=== PATIENT | male | born 1955 | race Caucasian/White ===

== ENCOUNTER 2018-02-01 18:48 | Inpatient (IN) | payer MEDICARE ==
[~2018-02-01] VITALS: Ht 177.8 cm; Wt 92.2 kg
[2018-02-01 19:14] VITALS: BP 187/84; PULSE 85; RESP 20; TEMP 98.1; O2SAT 99
--- NOTE | 2018-02-01 20:09 | PD ---
HPI Chief Complaint: Hip Injury Time Seen by Provider: 20:08 Travel History International Travel<30 days: No Contact w/Intl Traveler<30days: No Traveled to known affect area: No History of Present Illness HPI 63-year-old male came to the emergency room brought by EMS after a fall from his seated walker while he was fishing. Patient landed on the left side and was unable to get up since then. He complains of left hip pain. Patient can ambulate with the help of the walker. 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 Patient is diabetic. He also has history of end-stage renal disease and hemodialysis dependent. His last dialysis was yesterday. Pain is worse upon movement. Patient received morphine on route by EMS. [facility] Past Medical History Narrative Medical List of his past medical, surgical, social and family history is reviewed from the nursing note. COPD: Yes Diabetes: No Patient Takes Glucophage: No Dialysis: Yes (m/w/f) Hypertension: Yes Respiratory: Yes (COPD) Tetanus Vaccination: < 5 Years Influenza Vaccination: Yes Past Surgical History Cardiac Surgery: Yes (open heart) Social History Alcohol Use: Yes (rare) Tobacco Use: No Substance Use: No Allergies-Medications (Allergen,Severity, Reaction): Coded Allergies: codeine (Verified Allergy, Intermediate, 02/02/18) Comments List of his allergies reviewed from the nursing note Reported Meds & Prescriptions Reported Meds & Active Scripts Active Narrative Medication List of his home medications reviewed from the nursing note. Review of Systems Except as stated in HPI: all other systems reviewed are Neg Musculoskeletal: Positive: Pain Physical Exam Narrative GENERAL: Awake, alert, moderate distress SKIN: Focused skin assessment warm/dry. HEAD: Atraumatic. Normocephalic. EYES: Pupils equal and round. No scleral icterus. No injection or drainage. ENT: No nasal bleeding or discharge. Mucous membranes pink and moist. NECK: Trachea midline. No JVD. CARDIOVASCULAR: Regular rate and rhythm. No murmur appreciated. RESPIRATORY: No accessory muscle use. Clear to auscultation. Breath sounds equal bilaterally. GASTROINTESTINAL: Abdomen soft, non-tender, nondistended. Hepatic and splenic margins not palpable. MUSCULOSKELETAL: No obvious deformities. No clubbing. No cyanosis. No edema. Left BKA. Decreased range of motion at the left hip joint because of the pain NEUROLOGICAL: Awake and alert. No obvious cranial nerve deficits. Motor grossly within normal limits. Normal speech. PSYCHIATRIC: Appropriate mood and affect; insight and judgment normal. Data Data Last Documented VS Vital Signs Date Time Temp Pulse Resp B/P (MAP) Pulse Ox O2 Delivery O2 Flow Rate FiO2 02/01/18 20:25 69 20 182/106 (131) 95 Room Air 02/01/18 19:14 98.1 Orders Orders Femur (Ap & Lat/2vws) (02/01/18 ) Pelvis, Ap Only (Routine) (02/01/18 ) Morphine Inj (Morphine Inj) (02/01/18 20:15) Electrocardiogram (02/01/18 19:06) Chest, Single Ap (02/01/18 ) Complete Blood Count With Diff (02/01/18 21:14) Basic Metabolic Panel (Bmp) (02/01/18 21:14) Prothrombin Time / Inr (Pt) (02/01/18 21:14) Admit Order (Ed Use Only) (02/01/18 21:14) [facility] Medical Decision Making Medical Screen Exam Complete: Yes Emergency Medical Condition: Yes Medical Record Reviewed: Yes Interpretation(s) Twelve-lead EKG was reviewed by me. Normal sinus rhythm, left axis deviation, anterior T-wave inversions. Heart rate of 69 bpm Differential Diagnosis Hip fracture, femur fracture, hip strain Narrative Course 9:25 PM x-ray of the femur and pelvis suggestive of left intertrochanter fracture. Blood test have been ordered. Patient will require admission. I discussed the case with the hospitalist was accepted the patient. 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 9:50 PM patient's biofuels plant operations engineer is Dr. Casey Ferro. This has been conveyed to the hospitalist. CBC shows the patient is anemic but hemoglobin is 8.6 and hence does not require blood transfusion at this point. Procedures EKG Prior to Arrival: No Diagnosis Primary Impression: Hip fracture Qualified Codes: S72.002A - Fracture of unspecified part of neck of left femur , initial encounter for closed fracture Additional Impressions: End stage renal disease Dependent on hemodialysis Admitting Information Admitting Physician Requests: Little Mathew MD Feb 01, 2018 20:09
[2018-02-01] MEDS ORDERED: MORPHINE SULFATE 4 MG/ML INJ IV PUSH ONE ×2 (20:15→23:00)
[2018-02-01 20:25] VITALS: BP 182/106; PULSE 69; RESP 20; O2SAT 95
--- NOTE | 2018-02-01 21:40 | RADRPT ---
EXAM DATE/TIME: 02/01/2018 20:50 [facility] COMPARISON: FEMUR LEFT (AP & LAT/2VWS), February 01, 2018, 20:52. INDICATIONS : Left hip pain after falling tonight. MEDICAL HISTORY : Hypertension. Diabetic. SURGICAL HISTORY : Below the knee left amputation. ENCOUNTER: Initial ACUITY: 1 day PAIN SCORE: 8/10 LOCATION: Left hip. FINDINGS: There is a mid cervical left femoral neck fracture with minimal displacement and likely slight angula tion and impaction. The adjacent pelvis appears grossly intact. Contralateral right hip is intact. Th ere are dense atherosclerotic vascular calcifications present. Degenerative changes noted in the visu alized lumbar spine. CONCLUSION: Left femoral neck fracture Tavares Baker MD on February 01, 2018 at 21:37 Board Certified Radiologist. This report was verified electronically.
--- NOTE | 2018-02-01 21:41 | RADRPT ---
EXAM DATE/TIME: 02/01/2018 20:52 [facility] COMPARISON: No previous studies available for comparison. INDICATIONS : Left hip pain after falling today. MEDICAL HISTORY : Hypertension. Diabetic. SURGICAL HISTORY : Below the knee left amputation. ENCOUNTER: Initial ACUITY: 1 day PAIN SCORE: 6/10 LOCATION: Left hip. FINDINGS: The left femoral neck is fractured. The remainder of the femur is intact. There mild degenerative yong nges at the knee. Dense atherosclerotic vascular calcification is present in the soft tissues. CONCLUSION: Left femoral neck fracture Tavares Baker MD on February 01, 2018 at 21:38 Board Certified Radiologist. This report was verified electronically.
[2018-02-01 21:43] LABS: AUTOMATED NEUTROPHIL # 5.7 TH/MM3 (1.8-7.7); BASOPHIL # 0.1 TH/MM3 (0-0.2); BASOPHIL % 1.1 % (0.0-2.0); EOSINOPHIL # 0.1 TH/MM3 (0-0.4); EOSINOPHIL % 1.6 % (0.0-4.0); HEMATOCRIT 25.9 % (39.0-51.0); HEMOGLOBIN 8.6 GM/DL (13.0-17.0); LYMPH % 5.1 % (9.0-44.0); LYMPHOCYTE # 0.3 TH/MM3 (1.0-4.8); MEAN CELL VOLUME 91.8 FL (80.0-100.0); MEAN CORPUSCULAR HEMOGLOBIN 30.6 PG (27.0-34.0); MEAN CORPUSCULAR HGB CONC 33.3 % (32.0-36.0); MEAN PLATELET VOLUME 8.8 FL (7.0-11.0); MONO % 5.9 % (0.0-8.0); MONOCYTE # 0.4 TH/MM3 (0-0.9); NEUT % 86.3 % (16.0-70.0); PLATELET COUNT 217 TH/MM3 (150-450); RED BLOOD COUNT 2.82 MIL/MM3 (4.50-5.90); RED CELL DISTRIBUTION WIDTH 16.2 % (11.6-17.2); WHITE BLOOD COUNT 6.6 TH/MM3 (4.0-11.0)
[2018-02-01 21:47] VITALS: BP 176/79; PULSE 70; RESP 20; O2SAT 95
--- NOTE | 2018-02-01 21:49 | RADRPT ---
EXAM DATE/TIME: 02/01/2018 21:23 [facility] COMPARISON: No previous studies available for comparison. INDICATIONS : PT fell while fishing. Pt has cough. MEDICAL HISTORY : None. SURGICAL HISTORY : None. ENCOUNTER: Initial ACUITY: 1 day PAIN SCORE: 0/10 LOCATION: FINDINGS: Examination does mild infiltrate in the right lung base. Left lung is grossly clear. There may be sma ll right effusion. No evidence of pneumothorax. Heart size is borderline. Mediastinal contours are gr ossly satisfactory. There has been previous sternotomy. CONCLUSION: Mild right base infiltrate or contusion and possible small effusion. Tavares Baker MD on February 01, 2018 at 21:46 Board Certified Radiologist. This report was verified electronically.
[2018-02-01 21:52] LABS: INTERNATIONAL NORMALIZED RATIO 1.2 RATIO; PROTHROMBIN TIME - PATIENT 12.3 SEC (9.8-11.6)
[2018-02-01 22:01] LABS: BICARBONATE 26.6 MEQ/L (21.0-32.0); CALCIUM 8.8 MG/DL (8.5-10.1); CREATININE 6.21 MG/DL (0.60-1.30)
[2018-02-01 23:12] VITALS: BP 194/90; PULSE 71; RESP 20; O2SAT 95
[2018-02-02] VITALS (12 sets, daily range): BP systolic 122–214; BP diastolic 67–98; PULSE 70–78; RESP 18–21; TEMP 97.9; O2SAT 93–100
[2018-02-02] MEDS ORDERED: LACTULOSE SYRUP 20 GM/30 ML CUP PO PRN ×2 (07:00→08:45)
[2018-02-02] MEDS ORDERED: ACETAMINOPHEN 325 MG TAB PO PRN ×4 (07:00→17:00)
[2018-02-02] MEDS ORDERED: BISACODYL 10 MG SUPP RECTAL PRN ×2 (07:00→08:45)
[2018-02-02] MEDS ORDERED: NALOXONE HCL 0.4 MG/ML AMP IV PUSH PRN ×2 (07:00→08:45)
[2018-02-02] MEDS ORDERED: MAGNESIUM HYDROXIDE SUSP 30 ML CUP PO PRN ×2 (07:00→08:45)
[2018-02-02] MEDS ORDERED: ONDANSETRON HCL 4 MG/2 ML VIAL IVP PRN ×2 (07:00→08:45)
[2018-02-02] MEDS ORDERED: SENNOSIDES 8.6 MG TAB PO PRN ×2 (07:00→08:45)
[2018-02-02] MEDS ORDERED: SODIUM CHLORIDE 0.9% FLUSH 10 ML FLUSH IV FLUSH PRN ×3 (07:00→17:00)
[2018-02-02] MEDS ORDERED: PROCHLORPERAZINE 25 MG SUPP RECTAL PRN (08:45)
[2018-02-02] MEDS ORDERED: oxyCODONE/ACETAMINOPHEN 5 MG/325 MG TAB PO PRN (08:45)
[2018-02-02] MEDS ORDERED: oxyCODONE/ACETAMINOPHEN 10 MG/325 MG TAB PO PRN (08:45)
[2018-02-02] MEDS ORDERED: MORPHINE SULFATE 2 MG/ML SYRINGE IV PUSH PRN ×3 (08:45)
[2018-02-02] MEDS ORDERED: DOCUSATE SODIUM 50 MG/SENNA 8.6 MG TAB PO SCH (09:00)
[2018-02-02] MEDS ORDERED: SODIUM CHLORIDE 0.9% FLUSH 10 ML FLUSH IV FLUSH SCH (09:00)
[2018-02-02] MEDS: DOCUSATE SODIUM 50 MG/SENNA 8.6 MG TAB PO SCH ×2 (09:00→20:37)
[2018-02-02] MEDS: SODIUM CHLORIDE 0.9% FLUSH 10 ML FLUSH IV FLUSH SCH ×2 (09:20→20:38)
--- NOTE | 2018-02-02 10:56 | HHI.HP ---
[facility] No Primary Care Physician Admission Diagnosis Fall, hip fracture Diagnoses: Chief Complaint: Status post fall and left hip injury Travel History International Travel<30 Days: No Contact w/Intl Traveler <30 Da: No Traveled to Known Affected Are: No History of Present Illness Patient is a 63-year-old gentleman, who presented to the emergency department by EMS after a fall from his seated walker while he was fishing. Patient states he landed on the left side was unable to get up since he had pain. His pain to the left hip area. Patient can usually ambulate with the help of the walker and his left lower extremity prostatic. Patient had a left below the knee amputation on a couple years ago he is diabetic has end-stage renal disease on hemodialysis. Dialyzes Tuesday and Tuesday had pain and was given morphine prior to presentation here in the emergency depart Review of Systems Constitutional: DENIES: Diaphoretic episodes, Fatigue, Fever, Weight gain, Weight loss, Chills, Dizziness, Change in appetite, Night Sweats Endocrine: DENIES: Heat/cold intolerance, Polydipsia, Polyuria, Polyphagia Eyes: DENIES: Blurred vision, Diplopia, Eye inflammation, Eye pain, Vision loss , Photosensitivity, Double Vision Ears, nose, mouth, throat: DENIES: Tinnitus, Hearing loss, Vertigo, Nasal discharge, Oral lesions, Throat pain, Hoarseness, Ear Pain, Running Nose, Epistaxis, Sinus Pain, Toothache, Odynophagia Respiratory: DENIES: Apneas, Cough, Snoring, Wheezing, Hemoptysis, Sputum production, Shortness of breath Cardiovascular: DENIES: Chest pain, Palpitations, Syncope, Dyspnea on Exertion , PND, Lower Extremity Edema, Orthopnea, Claudication Gastrointestinal: DENIES: Abdominal pain, Black stools, Bloody stools, Constipation, Diarrhea, Nausea, Vomiting, Difficulty Swallowing, Anorexia Musculoskeletal: COMPLAINS OF: Joint pain, Back pain, Neck pain, DENIES: Muscle aches, Stiffness, Joint Swelling Integumentary: DENIES: Abnormal pigmentation, Nail changes, Pruritus, Rash Hematologic/lymphatic: DENIES: Bruising, Lymphadenopathy Immunologic/allergic: DENIES: Eczema, Urticaria Neurologic: COMPLAINS OF: Abnormal gait, Poor Balance, DENIES: Headache, Localized weakness, Paresthesias, Seizures, Speech Problems, Tremor Psychiatric: DENIES: Anxiety, Confusion, Mood changes, Depression, Hallucinations, Agitation, Suicidal Ideation, Homicidal Ideation, Delusions Except as stated in HPI: all other systems reviewed are Neg Past Family Social History Past Medical History COPD Diabetes mellitus End-stage renal disease on hemodialysis Tuesday and Tuesday Hypertension Coronary artery disease with history of CABG Past Surgical History Left below the knee amputation Coronary artery bypass graft Dialysis access Reported Medications Reported Meds & Active Scripts Active Active Prescriptions or Reported Medications Unobtainable Allergies: Coded Allergies: codeine (Verified Allergy, Intermediate, 02/02/18) Active Ordered Medications Current Medications Morphine Sulfate (Morphine Inj) 4 mg ONCE ONCE IV PUSH Last administered on at 20:15; Start 02/01/18 at 20:15; Stop 02/01/18 at 20:16; Status DC Morphine Sulfate (Morphine Inj) 4 mg ONCE ONCE IV PUSH Last administered on at 23:00; Start 02/01/18 at 23:00; Stop 02/01/18 at 23:01; Status DC Sodium Chloride (NS Flush) 2 ml UNSCH PRN IV FLUSH FLUSH AFTER USING IV ACCESS ; Start 02/02/18 at 07:00 Sodium Chloride (NS Flush) 2 ml BID IV FLUSH Last administered on 02/02/18at 09: 20; Start 02/02/18 at 09:00 Acetaminophen (Tylenol) 650 mg Q4H PRN PO TEMP > 100.4; Start 02/02/18 at 07:00 Ondansetron HCl (Zofran Inj) 4 mg Q6H PRN IVP NAUSEA OR VOMITING Last administered on 02/02/18at 09:20; Start 02/02/18 at 07:00 Naloxone HCl (Narcan Inj) 0.4 mg UNSCH PRN IV PUSH SEE LABEL COMMENTS; Start at 07:00 Senna/Docusate Sodium ([place]-Colace) 1 tab BID PO ; Start 02/02/18 at 09:00 Magnesium Hydroxide (Milk Of Magnesia Liq) 30 ml Q12H PRN PO Mild constipation ; Start 02/02/18 at 07:00 Sennosides (Senokot) 17.2 mg Q12H PRN PO Moderate constipation; Start 02/02/18 at 07:00 Bisacodyl (Dulcolax Supp) 10 mg DAILY PRN RECTAL SEVERE CONSITIPATION; Start at 07:00 Lactulose (Lactulose Liq) 30 ml DAILY PRN PO SEVERE CONSITIPATION; Start at 07:00 Sodium Chloride (NS Flush) 2 ml UNSCH PRN IV FLUSH FLUSH AFTER USING IV ACCESS ; Start 02/02/18 at 08:45; Status Cancel Sodium Chloride (NS Flush) 2 ml BID IV FLUSH ; Start 02/02/18 at 09:00; Status Cancel Acetaminophen (Tylenol) 650 mg Q4H PRN PO TEMP > 100.4; Start 02/02/18 at 08:45 Ondansetron HCl (Zofran Inj) 4 mg Q6H PRN IVP NAUSEA OR VOMITING; Start at 08:45 Prochlorperazine (Compazine Supp) 25 mg Q12H PRN RECTAL NAUSEA OR VOMITING; Start 02/02/18 at 08:45 Acetaminophen (Tylenol) 650 mg Q6H PRN PO PAIN SCALE 1 TO 2; Start 02/02/18 at 08:45 Oxycodone/ Acetaminophen (Percocet 5-325 Mg) 1 tab Q6H PRN PO PAIN SCALE 3 TO 5; Start 02/02/18 at 08:45 Oxycodone/ Acetaminophen (Percocet 10-325 Mg) 1 tab Q6H PRN PO PAIN SCALE 6 TO 10; Start 02/02/18 at 08:45 Morphine Sulfate (Morphine Inj) 2 mg Q3H PRN IV PUSH Pain 3-5; if unable to take PO; Start 02/02/18 at 08:45 Morphine Sulfate (Morphine Inj) 4 mg Q3H PRN IV PUSH Pain 6-10;if unable to take PO Last administered on 02/02/18at 09:21; Start 02/02/18 at 08:45 Morphine Sulfate (Morphine Inj) 4 mg Q3H PRN IV PUSH BREAKTHROUGH PAIN; Start 02/02/18 at 08:45 Naloxone HCl (Narcan Inj) 0.4 mg UNSCH PRN IV PUSH SEE LABEL COMMENTS; Start at 08:45 Senna/Docusate Sodium ([place]-Colace) 1 tab BID PO ; Start 02/02/18 at 09:00 Magnesium Hydroxide (Milk Of Magnesia Liq) 30 ml Q12H PRN PO Mild constipation ; Start 02/02/18 at 08:45 Sennosides (Senokot) 17.2 mg Q12H PRN PO Moderate constipation; Start 02/02/18 at 08:45 Bisacodyl (Dulcolax Supp) 10 mg DAILY PRN RECTAL SEVERE CONSITIPATION; Start at 08:45 Lactulose (Lactulose Liq) 30 ml DAILY PRN PO SEVERE CONSITIPATION; Start at 08:45 Family History Hypertension and diabetes Social History Occasional alcoholic beverage Denies any tobacco Denies any illicit Physical Exam Vital Signs Vital Signs Date Time Temp Pulse Resp B/P (MAP) Pulse Ox O2 Delivery O2 Flow Rate FiO2 02/02/18 09:15 76 18 214/98 (136) 98 Nasal Cannula 2.00 02/02/18 09:00 76 18 204/89 (127) 98 Nasal Cannula 2.00 02/02/18 04:42 71 20 122/67 (85) 93 Nasal Cannula 2.00 02/01/18 23:26 20 02/01/18 23:12 71 20 194/90 (124) 95 Nasal Cannula 2.00 02/01/18 22:14 20 02/01/18 21:47 70 20 176/79 (111) 95 Nasal Cannula 2.00 02/01/18 20:25 69 20 182/106 (131) 95 Room Air 02/01/18 19:14 98.1 85 20 187/84 (118) 99 Physical Exam GENERAL: This is a well-nourished, well-developed patient, in no apparent distress. SKIN: No rashes, ecchymoses or lesions. Cool and dry. HEAD: Atraumatic. Normocephalic. No temporal or scalp tenderness. EYES: Pupils equal round and reactive. Extraocular motions intact. No scleral icterus. No injection or drainage. ENT: Nose without bleeding, purulent drainage or septal hematoma. Throat without erythema, tonsillar hypertrophy or exudate. Uvula midline. Airway patent. NECK: Trachea midline. No JVD or lymphadenopathy. Supple, nontender, no meningeal signs. CARDIOVASCULAR: Regular rate and rhythm without murmurs, gallops, or rubs. S1- S2 no S3 or S4 RESPIRATORY: Clear to auscultation. Breath sounds equal bilaterally. No wheezes , rales, or rhonchi. GASTROINTESTINAL: Abdomen soft, non-tender, nondistended. No hepato-splenomegaly , or palpable masses. No guarding. MUSCULOSKELETAL: Extremities without clubbing, cyanosis, or edema. No joint tenderness, effusion, or edema noted. No calf tenderness. Negative Homans sign bilaterally. Left below the knee amputation with tenderness to the left hip from fracture decreased range of motion NEUROLOGICAL: Awake and alert. Cranial nerves II through XII intact. Motor and sensory grossly within normal limits. Five out of 5 muscle strength in all muscle groups. Normal speech. Left below the knee amputation with with tender left hip from fracture and decreased range of motion Insight and judgment is good Mood behaviors appropriate Laboratory Laboratory Tests Test 02/01/18 21:20 White Blood Count 6.6 Red Blood Count 2.82 Hemoglobin 8.6 Hematocrit 25.9 Mean Corpuscular Volume 91.8 Mean Corpuscular Hemoglobin 30.6 Mean Corpuscular Hemoglobin Concent 33.3 Red Cell Distribution Width 16.2 Platelet Count 217 Mean Platelet Volume 8.8 Neutrophils (%) (Auto) 86.3 Lymphocytes (%) (Auto) 5.1 Monocytes (%) (Auto) 5.9 Eosinophils (%) (Auto) 1.6 Basophils (%) (Auto) 1.1 Neutrophils # (Auto) 5.7 Lymphocytes # (Auto) 0.3 Monocytes # (Auto) 0.4 Eosinophils # (Auto) 0.1 Basophils # (Auto) 0.1 CBC Comment DIFF FINAL Differential Comment Prothrombin Time 12.3 Prothromb Time International Ratio 1.2 Blood Urea Nitrogen 29 Creatinine 6.21 Random Glucose 114 Calcium Level 8.8 Sodium Level 139 Potassium Level 4.3 Chloride Level 104 Carbon Dioxide Level 26.6 Anion Gap 8 Estimat Glomerular Filtration Rate 9 Result Diagram: 02/01/18211902/01/182119 Imaging Last Impressions Pelvis X-Ray 02/01/18 0000 Signed Impressions: Service Date/Time: Thursday, February 01, 2018 20:50 - CONCLUSION: Left femoral neck fracture Tavares Baker MD Femur X-Ray 02/01/18 0000 Signed Impressions: Service Date/Time: Thursday, February 01, 2018 20:52 - CONCLUSION: Left femoral neck fracture Tavares Baker MD Chest X-Ray 02/01/18 0000 Signed Impressions: Service Date/Time: Thursday, February 01, 2018 21:23 - CONCLUSION: Mild right base infiltrate or contusion and possible small effusion. MD Sunny Bondi VTE Risk Assessment Caprini VTE Risk Assessment: Mod/High Risk (score >= 2) Caprini Risk Assessment Model Point Value = 1 Point Value = 2 Point Value = 3 Point Value = 5 Age 41-60 Minor surgery BMI > 25 kg/m2 Swollen legs Varicose veins or History of unexplained or recurrent spontaneous Oral contraceptives or hormone replacement Sepsis (< 1 month) Serious lung disease, including pneumonia (< 1 month) Abnormal pulmonary function Acute myocardial infarction Congestive heart failure (< 1 month) History of inflammatory bowel disease Medical patient at bed rest Age 61-74 Arthroscopic surgery Major open surgery (> 45 min) Laparoscopic surgery (> 45 min) Malignancy Confined to bed (> 72 hours) Immobilizing plaster cast Central venous access Age >= 75 History of VTE Family history of VTE Factor V Leiden Prothrombin [id number] Lupus anticoagulant Anticardiolipin antibodies Elevated serum homocysteine Heparin-induced thrombocytopenia Other congenital or acquired thrombophilia Stroke (< 1 month) Elective arthroplasty Hip, pelvis, or leg fracture Acute spinal cord injury (< 1 month) Prophylaxis Regimen Total Risk Factor Score Risk Level Prophylaxis Regimen 0-1 Low Early ambulation 2 Moderate Order ONE of the following: *Sequential Compression Device (SCD) *Heparin 5000 units SQ BID 3-4 Higher Order ONE of the following medications: *Heparin 5000 units SQ TID *Enoxaparin/Lovenox 40 mg SQ daily (WT < 150 kg, CrCl > 30 mL/min) *Enoxaparin/Lovenox 30 mg SQ daily (WT < 150 kg, CrCl > 10-29 mL/min) *Enoxaparin/Lovenox 30 mg SQ BID (WT < 150 kg, CrCl > 30 mL/min) AND/OR *Sequential Compression Device (SCD) 5 or more Highest Order ONE of the following medications: *Heparin 5000 units SQ TID (Preferred with Epidurals) *Enoxaparin/Lovenox 40 mg SQ daily (WT < 150 kg, CrCl > 30 mL/min) *Enoxaparin/Lovenox 30 mg SQ daily (WT < 150 kg, CrCl > 10-29 mL/min) *Enoxaparin/Lovenox 30 mg SQ BID (WT < 150 kg, CrCl > 30 mL/min) AND *Sequential Compression Device (SCD) Assessment and Plan Assessment and Plan Left hip fracture due to fall -Keep n.p.o. -Pain control -Surgery when able to be done End-stage renal disease on hemodialysis with consult nephrology since his primary hydrodynamics teacher does not come here -Continue dialysis Tuesday and Tuesday COPD continue home medications Diabetes Accu-Cheks before meals and at bedtime with sliding scale coverage Hypertension resume home medications Need to obtain home medications GI prophylaxis with Protonix We will defer DVT prophylaxis to orthopedic surgery Await orthopedics evaluation to determine when surgery on the left hip will be done Code Status Full code Discussed Condition With Discussed with patient and RN Physician Certification 2 Midnight Certification Type: Admission for Inpatient Services Order for Inpatient Services The services are ordered in accordance with Medicare regulations or non- Medicare payer requirements, as applicable. In the case of services not specified as inpatient-only, they are appropriately provided as inpatient services in accordance with the 2-midnight benchmark. Estimated LOS (days): 3 days is the estimated time the patient will need to remain in the hospital, assuming treatment plan goals are met and no additional complications. Post-Hospital Plan: Not yet determined Oswaldo Pressley DO Feb 02, 2018 10:56
[2018-02-02] MEDS ORDERED: DEXTROSE 50% IN WATER 50 ML VIAL(D50) IV PUSH PRN (11:00)
[2018-02-02] MEDS ORDERED: GLUCAGON 1 MG/ML VIAL OTHER PRN (11:00)
[2018-02-02] MEDS: INSULIN ASPART SUPPLEMENTAL SCALE SQ SCH ×3 (12:00→21:00)
[2018-02-02] MEDS ORDERED: WHITGEL TOPICAL (14:05)
[2018-02-02] MEDS ORDERED: CORE25TA PO (14:05)
[2018-02-02] MEDS ORDERED: IPRAAER INH (14:05)
[2018-02-02] MEDS ORDERED: ACET-822 (14:05)
[2018-02-02] MEDS ORDERED: OMEP20TA93 PO (14:05)
[2018-02-02] MEDS ORDERED: LISI-515 PO (14:05)
[2018-02-02] MEDS ORDERED: TRAZ100T10 PO (14:05)
[2018-02-02] MEDS ORDERED: LANTINJ SQ (14:05)
[2018-02-02] MEDS ORDERED: BUPR150T3 PO (14:05)
[2018-02-02] MEDS ORDERED: ISOS10TA PO (14:05)
[2018-02-02] MEDS ORDERED: TORS1TAB12 PO (14:05)
[2018-02-02] MEDS ORDERED: SERT-129 PO (14:05)
[2018-02-02] MEDS ORDERED: STRETAB PO (14:05)
[2018-02-02] MEDS ORDERED: NOVOINJ3 SQ (14:05)
[2018-02-02] MEDS ORDERED: [UNRECOGNIZED DRUG - CODE] SQ (14:05)
[2018-02-02] MEDS ORDERED: TAMS5CAP PO ×2 (14:05)
[2018-02-02] MEDS ORDERED: GABA100C4 PO ×2 (14:05)
--- NOTE | 2018-02-02 14:39 | EKG ---
Date Performed: 02/01/2018 Time Performed: 19:06:34 PTAGE: 63 years EKG: Sinus rhythm Anterior ST T wave changes, consider ischemia BORDERLINE ECG NO PREVIOUS TRACING DOCTOR: Sarbjit Stroud Interpretating Date/Time 02/02/2018 14:38:46
[2018-02-02] MEDS ORDERED: SODIUM CHLOR 0.9% 1000 ML INJ 1,000 ML OTHER PRN ×2 (16:54)
[2018-02-02] MEDS ORDERED: SODIUM CHLOR 0.9% 1000 ML INJ 1,000 ML IV PRN (16:54)
--- NOTE | 2018-02-02 16:54 | PD.CONS ---
HPI Service Nephrology Consult Requested By Dr. Pressley Reason for Consult End stage renal disease on hemodialysis Primary Care Physician No Primary Care Physician History of Present Illness Patient is a 63-year-old gentleman with a past medical history of diabetes mellitus, Hypertension, coronary artery disease with history of CABG, and end stage renal disease on hemodialysis. Patient presented to emergency department by EMS after a fall from his seated walker while he was fishing landing on left side. Pelvis Xray is noted to have left femoral neck fracture. Nephrology was consulted for end stage renal disease and management of dialysis. Patient is followed by Dr. Beach and has dialysis on Tuesday, Tuesday , and Tuesday. Last Dialysis was yesterday. (Sofía Schofield) Review of Systems Constitutional: DENIES: Fatigue, Dizziness Respiratory: DENIES: Cough, Sputum production, Shortness of breath Cardiovascular: DENIES: Chest pain, Palpitations Gastrointestinal: DENIES: Abdominal pain, Diarrhea, Nausea Neurologic: COMPLAINS OF: Abnormal gait, Poor Balance (Sofía Schofield ) Past Family Social History Allergies: Coded Allergies: codeine (Verified Allergy, Intermediate, 02/02/18) Past Medical History COPD Diabetes mellitus End-stage renal disease on hemodialysis Tuesday and Tuesday Hypertension Coronary artery disease with history of CABG Past Surgical History Left below the knee amputation Coronary artery bypass graft Dialysis access Active Ordered Medications Current Medications Medications (Trade) Dose Ordered Sig/Angela Route Start Time Stop Time Status Last Admin (NS Flush) 2 ml UNSCH PRN IV FLUSH 02/02/18 07:00 (NS Flush) 2 ml BID IV FLUSH 02/02/18 09:00 02/02/18 09:20 (Tylenol) 650 mg Q4H PRN PO 02/02/18 08:45 (Zofran Inj) 4 mg Q6H PRN IVP 02/02/18 08:45 (Compazine Supp) 25 mg Q12H PRN RECTAL 02/02/18 08:45 (Tylenol) 650 mg Q6H PRN PO 02/02/18 08:45 (Percocet 5-325 Mg) 1 tab Q6H PRN PO 02/02/18 08:45 (Percocet 10-325 Mg) 1 tab Q6H PRN PO 02/02/18 08:45 02/02/18 12:43 (Morphine Inj) 2 mg Q3H PRN IV PUSH 02/02/18 08:45 (Morphine Inj) 4 mg Q3H PRN IV PUSH 02/02/18 08:45 02/02/18 09:21 (Morphine Inj) 4 mg Q3H PRN IV PUSH 02/02/18 08:45 (Narcan Inj) 0.4 mg UNSCH PRN IV PUSH 02/02/18 08:45 ([place]-Colace) 1 tab BID PO 02/02/18 09:00 (Milk Of Magnesia Liq) 30 ml Q12H PRN PO 02/02/18 08:45 (Senokot) 17.2 mg Q12H PRN PO 02/02/18 08:45 (Dulcolax Supp) 10 mg DAILY PRN RECTAL 02/02/18 08:45 (Lactulose Liq) 30 ml DAILY PRN PO 02/02/18 08:45 (D50w (Vial) Inj) 50 ml UNSCH PRN IV PUSH 02/02/18 11:00 (Glucagon Inj) 1 mg UNSCH PRN OTHER 02/02/18 11:00 (NovoLOG SUPPLEMENTAL SCALE) 1 ACHS SLIDING SCALE SQ 02/02/18 12:00 Family History Hypertension and diabetes Social History Occasional alcoholic beverage Denies any tobacco or illicit drug use Lives alone (Sofía Schofield) Physical Exam Vital Signs Vital Signs Date Time Temp Pulse Resp B/P (MAP) Pulse Ox O2 Delivery O2 Flow Rate FiO2 02/02/18 12:10 02/02/18 11:00 74 18 175/90 (118) 98 Nasal Cannula 2.00 02/02/18 09:15 76 18 214/98 (136) 98 Nasal Cannula 2.00 02/02/18 09:00 76 18 204/89 (127) 98 Nasal Cannula 2.00 02/02/18 04:42 71 20 122/67 (85) 93 Nasal Cannula 2.00 02/01/18 23:26 20 02/01/18 23:12 71 20 194/90 (124) 95 Nasal Cannula 2.00 02/01/18 22:14 20 02/01/18 21:47 70 20 176/79 (111) 95 Nasal Cannula 2.00 02/01/18 20:25 69 20 182/106 (131) 95 Room Air 02/01/18 19:14 98.1 85 20 187/84 (118) 99 Physical Exam GENERAL: Alert and oriented. SKIN: Warm and dry. HEAD: Normocephalic. EYES: No scleral icterus. No injection or drainage. NECK: Supple, trachea midline. No JVD or lymphadenopathy. CARDIOVASCULAR: Regular rate and rhythm without murmurs, gallops, or rubs. RESPIRATORY: Breath sounds equal bilaterally. No accessory muscle use. GASTROINTESTINAL: Abdomen soft, non-tender, nondistended. MUSCULOSKELETAL: No cyanosis, or edema. Limited range of motion with fracture hip. Left below the knee amputation. BACK: Nontender without obvious deformity. No CVA tenderness. Laboratory Laboratory Tests Test 02/01/18 21:20 White Blood Count 6.6 Red Blood Count 2.82 Hemoglobin 8.6 Hematocrit 25.9 Mean Corpuscular Volume 91.8 Mean Corpuscular Hemoglobin 30.6 Mean Corpuscular Hemoglobin Concent 33.3 Red Cell Distribution Width 16.2 Platelet Count 217 Mean Platelet Volume 8.8 Neutrophils (%) (Auto) 86.3 Lymphocytes (%) (Auto) 5.1 Monocytes (%) (Auto) 5.9 Eosinophils (%) (Auto) 1.6 Basophils (%) (Auto) 1.1 Neutrophils # (Auto) 5.7 Lymphocytes # (Auto) 0.3 Monocytes # (Auto) 0.4 Eosinophils # (Auto) 0.1 Basophils # (Auto) 0.1 CBC Comment DIFF FINAL Differential Comment Prothrombin Time 12.3 Prothromb Time International Ratio 1.2 Blood Urea Nitrogen 29 Creatinine 6.21 Random Glucose 114 Calcium Level 8.8 Sodium Level 139 Potassium Level 4.3 Chloride Level 104 Carbon Dioxide Level 26.6 Anion Gap 8 Estimat Glomerular Filtration Rate 9 (Sofía Schofield) Result Diagram: 02/01/18211902/01/182119 Imaging Last Impressions Pelvis X-Ray 02/01/18 0000 Signed Impressions: Service Date/Time: Thursday, February 01, 2018 20:50 - CONCLUSION: Left femoral neck fracture Tavares Baker MD Femur X-Ray 02/01/18 0000 Signed Impressions: Service Date/Time: Thursday, February 01, 2018 20:52 - CONCLUSION: Left femoral neck fracture Tavares Baker MD Chest X-Ray 02/01/18 0000 Signed Impressions: Service Date/Time: Thursday, February 01, 2018 21:23 - CONCLUSION: Mild right base infiltrate or contusion and possible small effusion. Tavares Baker MD (Sofía Schofield) Assessment and Plan Problem List: (1) End stage renal disease ICD Codes: N18.6 - End stage renal disease Status: Acute Plan: End stage renal disease on hemodialysis on Tuesday, Tuesday, and Tuesday. AVF in left arm with positive thrill and bruit Plan for hemodialysis tomorrow orders entered. Epogen with dialysis for anemia. (2) Hypertension ICD Codes: I10 - Essential (primary) hypertension Plan: continue home medications and monitor (3) Hip fracture ICD Codes: S72.009A - Fracture of unspecified part of neck of unspecified femur , initial encounter for closed fracture Status: Acute Plan: Ortho consulted (4) Diabetes ICD Codes: E11.9 - Type 2 diabetes mellitus without complications Plan: Maintain blood sugars between 140- 180 mg/dl (5) Anemia ICD Codes: D64.9 - Anemia, unspecified Plan: Epogen with dialysis (Sofía Schofield) Problem List: (1) End stage renal disease ICD Codes: N18.6 - End stage renal disease Status: Acute Plan: End stage renal disease on hemodialysis on Tuesday, Tuesday, and Tuesday. AVF in left arm with positive thrill and bruit Plan for hemodialysis tomorrow orders entered. Epogen with dialysis for anemia. Patient seen and examined, agree with above. HD to continue MWF. No urgent need for HD. (2) Hypertension ICD Codes: I10 - Essential (primary) hypertension Plan: continue home medications and monitor (3) Hip fracture ICD Codes: S72.009A - Fracture of unspecified part of neck of unspecified femur , initial encounter for closed fracture Status: Acute Plan: Ortho consulted (4) Diabetes ICD Codes: E11.9 - Type 2 diabetes mellitus without complications Plan: Maintain blood sugars between 140- 180 mg/dl (5) Anemia ICD Codes: D64.9 - Anemia, unspecified Plan: Epogen with dialysis (Romulo Nascimento MD) Problem Qualifiers (1) Hip fracture: Qualified Codes: S72.002A - Fracture of unspecified part of neck of left femur , initial encounter for closed fracture Sofía Schofield Feb 02, 2018 16:54 Romulo Nascimento MD Feb 03, 2018 17:58
[2018-02-02] MEDS ORDERED: diphenhydrAMINE HCL 25 MG CAP PO PRN (17:00)
[2018-02-02] MEDS ORDERED: NITROGLYCERIN 0.4 MG SL 25 TABS/BTL SL PRN (17:00)
[2018-02-02] MEDS ORDERED: cloNIDine HCL 0.1 MG TAB PO PRN (17:00)
[2018-02-02] MEDS ORDERED: ONDANSETRON HCL 4 MG/2 ML VIAL IV PUSH PRN (17:00)
[2018-02-02] MEDS ORDERED: GELATIN 12 MM/7 MM FOAM TOP PRN (17:00)
[2018-02-02] MEDS ORDERED: HEPARIN SODIUM - IV 10,000 UNITS/10 ML VIAL PRN (17:00)
[2018-02-02] MEDS ORDERED: ALBUMIN 25% INJ 100 ML IV PRN (17:00)
[2018-02-02] MEDS ORDERED: EPOETIN ALFA 10,000 UNITS/ML VIAL IV PUSH PRN (17:00)
[2018-02-02] MEDS ORDERED: HEPARIN SODIUM - IV 10,000 UNITS/10 ML VIAL IV FLUSH PRN (17:00)
[2018-02-02] MEDS ORDERED: GENTAMICIN SULFATE 20 MG/2 ML VIAL OTHER PRN (17:00)
[2018-02-02] MEDS ORDERED: MANNITOL 12.5 GM/50 ML VIAL IV PRN (17:00)
[2018-02-02 19:12] LABS: HEMATOCRIT 31.6 % (39.0-51.0); HEMOGLOBIN 9.8 GM/DL (13.0-17.0); MEAN CELL VOLUME 95.4 FL (80.0-100.0); MEAN CORPUSCULAR HEMOGLOBIN 29.6 PG (27.0-34.0); MEAN CORPUSCULAR HGB CONC 31.1 % (32.0-36.0); MEAN PLATELET VOLUME 8.9 FL (7.0-11.0); PLATELET COUNT 271 TH/MM3 (150-450); RED BLOOD COUNT 3.31 MIL/MM3 (4.50-5.90); RED CELL DISTRIBUTION WIDTH 17.1 % (11.6-17.2); WHITE BLOOD COUNT 11.2 TH/MM3 (4.0-11.0)
[2018-02-02 19:20] LABS: INTERNATIONAL NORMALIZED RATIO 1.4 RATIO
--- NOTE | 2018-02-02 19:25 | PD.CONS ---
HPI Service Critical Care Medicine Consult Requested By MISSY MITCHELL team Reason for Consult s/p PEA arrest Primary Care Physician No Primary Care Physician History of Present Illness This is a 63yM with history of ESRD on IHD who presented 02/01 with left femoral neck fracture, admitted for work-up and possible operative fixation. He was found unresponsive in PEA arrest on the floor. ACLS ensued. ROSC was obtained. I met the patient upon arrival to the ICU. Patient is unresponsive and no additional information is available from the patient. ROS unobtainable. Review of Systems ROS Limitations: Clinical Condition, Intubated, Altered Mental Status, Unresponsive Past Family Social History Allergies: Coded Allergies: codeine (Verified Allergy, Intermediate, 02/02/18) Past Medical History COPD Diabetes mellitus End-stage renal disease on hemodialysis Tuesday and Tuesday Hypertension Coronary artery disease with history of CABG Past Surgical History Left below the knee amputation Coronary artery bypass graft Dialysis access Reported Medications Stress Formula with Iron Tab (Vit B Comp/C/FA/Iron Sulf/Tevin) 500-400-27 Tablet PO DAILY Bupropion HCl ER 24 HR (Bupropion HCl) 150 Mg Tab 150 Mg PO DAILY Combivent Respimat Inh (Ipratropium-Albuterol Inh) 20-100 Group Home/Act Aero 1 Puff INH QID Coreg (Carvedilol) 25 Mg Tab 25 Mg PO BIDPC Demadex (Torsemide) 20 Mg Tab 100 Mg PO DAILY Flomax (Tamsulosin HCl) 0.4 Mg Cap 0.2 Mg PO TIDPC Flomax (Tamsulosin HCl) 0.4 Mg Cap 0.4 Mg PO DAILY Gabapentin 100 Mg Cap 200 Mg PO HS Gabapentin 100 Mg Cap 100 Mg PO AC BREAKFAST Isosorbide Dinitrate 10 Mg Tab 10 Mg PO TID Lantus Solostar Pen Inj (Insulin Glargine) 300 Unit/3 Ml Pen 36 Units SQ HS Lantus Solostar Pen Inj (Insulin Glargine) 300 Unit/3 Ml Pen 36 Units SQ HS Lisinopril 20 Mg Tab 20 Mg PO BID Novolog Flexpen Inj (Insulin Aspart) 300 Unit/3 Ml Pen 1 Units SQ TID Omeprazole 20 Mg Tab 20 Mg PO TIDAC Procrit Inj (Epoetin Armando) 4,000 Unit/Ml Inj 4,000 Units SQ 3XWEEK Sertraline (Sertraline HCl) 100 Mg Tab 100 Mg PO DAILY Trazodone (Trazodone HCl) 100 Mg Tablet 100 Mg PO HS Tylenol Extra Strength (Acetaminophen) 500 Mg Tablet DAILY Vaseline (White Petrolatum) 1 Gel Gel TOPICAL BID Active Ordered Medications See MAR Family History Reported Medications Reported Meds & Active Scripts Active Active Prescriptions or Reported Medications Unobtainable Allergies: Coded Allergies: codeine (Verified Allergy, Intermediate, 02/02/18) Hypertension and diabetes Social History Occasional alcoholic beverage Denies any tobacco Denies any illicit Physical Exam Vital Signs Vital Signs Date Time Temp Pulse Resp B/P (MAP) Pulse Ox O2 Delivery O2 Flow Rate FiO2 02/02/18 18:51 93 100 02/02/18 18:30 15.00 02/02/18 16:00 97.9 70 18 152/76 (101) 96 02/02/18 12:10 02/02/18 11:00 74 18 175/90 (118) 98 Nasal Cannula 2.00 02/02/18 09:15 76 18 214/98 (136) 98 Nasal Cannula 2.00 02/02/18 09:00 76 18 204/89 (127) 98 Nasal Cannula 2.00 02/02/18 04:42 71 20 122/67 (85) 93 Nasal Cannula 2.00 02/01/18 23:26 20 02/01/18 23:12 71 20 194/90 (124) 95 Nasal Cannula 2.00 02/01/18 22:14 20 02/01/18 21:47 70 20 176/79 (111) 95 Nasal Cannula 2.00 02/01/18 20:25 69 20 182/106 (131) 95 Room Air Physical Exam gen: middle-aged male, lying in bed, comatose, unresponsive. heent: nc. at. pupils are 3mm, disconjugate. equal, sluggish but reactive. mucous membranes moist. neck: no jvd. trachea midline. chest: intubated, on prvc 100% fio2. breathes over the vent. equal chest rise cv: normal rate, regular rhythm. sinus. abd: soft, nontender, nondistended. no guarding. extr: evidence of left BKA. extremities are cool, poorly perfused. left forearm avf with palpable thrill. neuro: GCS 3. pupils as above. negative cough. negative gag. negative corneals. breaths over vent. EKG: prelim interpretation: NSR with LVH. no st-t-wave abnormalities. Bedside Critical Care Echocardiography: grossly preserved biventricular function. some evidence of RV pressure overload with RVSP estimated in the 60s. IVC dilated without respiratory variation. no pericardial effusion. Laboratory Laboratory Tests Test 02/01/18 21:20 02/02/18 18:30 02/02/18 18:36 02/02/18 18:50 White Blood Count 6.6 11.2 Red Blood Count 2.82 3.31 Hemoglobin 8.6 9.8 Hematocrit 25.9 31.6 Mean Corpuscular Volume 91.8 95.4 Mean Corpuscular Hemoglobin 30.6 29.6 Mean Corpuscular Hemoglobin Concent 33.3 31.1 Red Cell Distribution Width 16.2 17.1 Platelet Count 217 271 Mean Platelet Volume 8.8 8.9 Neutrophils (%) (Auto) 86.3 Lymphocytes (%) (Auto) 5.1 Monocytes (%) (Auto) 5.9 Eosinophils (%) (Auto) 1.6 Basophils (%) (Auto) 1.1 Neutrophils # (Auto) 5.7 Lymphocytes # (Auto) 0.3 Monocytes # (Auto) 0.4 Eosinophils # (Auto) 0.1 Basophils # (Auto) 0.1 CBC Comment DIFF FINAL Differential Comment Prothrombin Time 12.3 Prothromb Time International Ratio 1.2 Blood Urea Nitrogen 29 Creatinine 6.21 Random Glucose 114 Calcium Level 8.8 Sodium Level 139 Potassium Level 4.3 Chloride Level 104 Carbon Dioxide Level 26.6 Anion Gap 8 Estimat Glomerular Filtration Rate 9 Blood Gas Puncture Site RT RADIAL Blood Gas Patient Temperature 98.6 Blood Gas HCO3 19 Blood Gas Base Excess -6.4 Blood Gas Oxygen Saturation 97 Arterial Blood pH 7.32 Arterial Blood Partial Pressure CO2 37 Arterial Blood Partial Pressure O2 289 Arterial Blood Oxygen Content 13.1 Arterial Blood Carboxyhemoglobin 1.3 Arterial Blood Methemoglobin 1.2 Blood Gas Hemoglobin 9.1 Oxygen Delivery Device VENTILATOR Blood Gas Ventilator Setting PRVC/AC Blood Gas Inspired Oxygen 100 Result Diagram: 02/02/18 1836 02/01/180 Imaging Last Impressions Pelvis X-Ray 02/01/18 0000 Signed Impressions: Service Date/Time: Thursday, February 01, 2018 20:50 - CONCLUSION: Left femoral neck fracture Tavares Baker MD Femur X-Ray 02/01/18 0000 Signed Impressions: Service Date/Time: Thursday, February 01, 2018 20:52 - CONCLUSION: Left femoral neck fracture Tavares Baker MD Chest X-Ray 02/01/18 0000 Signed Impressions: Service Date/Time: Thursday, February 01, 2018 21:23 - CONCLUSION: Mild right base infiltrate or contusion and possible small effusion. Tavares Baker MD Assessment and Plan Assessment and Plan Assessment: 63yM with ESRD and new left femoral neck fracture found in PEA arrest. critically ill. will complete work-up and laboratory assessment. differential includes [place], PE, fat embolism, electrolyte abnormality, respiratory arrest from narcotic pain medication. Active Problems: Hypoxic Ischemic Encephalopathy Acute hypoxic and hypercarbic respiratory failure s/p PEA arrest Cardiogenic shock Acute anion gap metabolic acidosis ESRD on IHD left femoral neck fracture Plan: - admit to ICU - frequent neuro checks - avoid long-acting sedation - CT brain - vent bundle, hob elevated, nebs - wean fio2 for goal spo2 > 90% - no weaning of mechanical ventilation until neuro exam improves - VQ scan (ESRD) - EKG - trend troponins - norepinephrine for goal map > 65 mmHg - will not anticoagulate at this time until we have more diagnostic information. high risk for bleeding given ESRD and femoral neck fracture - nephrology involved. may need urgent HD. - stat CBC, CMP, coags, fibrinogen, lactate. - hold on any operative intervention until more critical issues have been addressed. Critical care time: 65 minutes, exclusive of separately billable procedures. Stu Pat MD Feb 02, 2018 19:25
[2018-02-02 19:34] LABS: ALBUMIN 3.7 GM/DL (3.4-5.0); ALKALINE PHOSPHATASE 92 U/L (45-117); ALT (GPT) 35 U/L (12-78); AST (GOT) 43 U/L (15-37); BICARBONATE 18.7 MEQ/L (21.0-32.0); BLOOD UREA NITROGEN 37 MG/DL (7-18); CALCIUM 9.2 MG/DL (8.5-10.1); CHLORIDE 102 MEQ/L (98-107); CREATININE 7.73 MG/DL (0.60-1.30); GLOMERULAR FILTRATION RATE 7 ML/MIN (>89); GLUCOSE,RANDOM 213 MG/DL (74-106); SODIUM (NA) 141 MEQ/L (136-145); TOTAL BILIRUBIN ADULT 0.7 MG/DL (0.2-1.0); TOTAL PROTEIN 7.8 GM/DL (6.4-8.2)
[2018-02-02 19:43] LABS: TROPONIN I 0.38 NG/ML (0.02-0.05)
--- NOTE | 2018-02-02 19:44 | RADRPT ---
EXAM DATE/TIME: 02/02/2018 19:19 [facility] COMPARISON: CHEST SINGLE AP, February 01, 2018, 21:23. INDICATIONS : Post intubation. MEDICAL HISTORY : None. SURGICAL HISTORY : CABG. ENCOUNTER: Initial ACUITY: 1 day PAIN SCORE: Non-responsive. LOCATION: Bilateral chest FINDINGS: Endotracheal tube is present with tip in satisfactory position several centimeters above the gabe. Bilateral perihilar and basilar pleural-parenchymal opacities are present, right worse than left. Car diac contour is grossly unchanged. CONCLUSION: Endotracheal tube placement is satisfactory. Worsening aeration. Tavares Baker MD on February 02, 2018 at 19:41 Board Certified Radiologist. This report was verified electronically.
--- NOTE | 2018-02-02 20:03 | RADRPT ---
EXAM DATE/TIME: 02/02/2018 19:48 [facility] COMPARISON: No previous studies available for comparison. INDICATIONS : Altered mental status. RADIATION DOSE: 41.51 CTDIvol (mGy) ; Patient motion MEDICAL HISTORY : Cardiovascular disease. Hypertension. Diabetes mellitus type 2. SURGICAL HISTORY : None. ENCOUNTER: Initial ACUITY: 1 day PAIN SCALE: Non-responsive LOCATION: cranial TECHNIQUE: Multiple contiguous axial images were obtained of the head. Using automated exposure control and adj ustment of the mA and/or kV according to patient size, radiation dose was kept as low as reasonably a chievable to obtain optimal diagnostic quality images. DICOM format image data is available electro nically for review and comparison. FINDINGS: There is encephalomalacia with patchy probable parenchymal calcification in the right frontal region. The left hemisphere is benign and unremarkable. The posterior fossa and brainstem structures are unr emarkable. The ventricles are symmetric and normal. There is layering fluid in the sphenoid sinus. CONCLUSION: Changes in the right frontal region most consistent with remote injury. No definite acute intracrania l findings Layering fluid in the sphenoid sinus Tavares Baker MD on February 02, 2018 at 19:58 Board Certified Radiologist. This report was verified electronically.
[2018-02-02] MEDS: hydrALAZINE HCL 20 MG/ML VIAL IV PUSH PRN (21:08)
--- NOTE | 2018-02-02 22:00 | RADRPT ---
EXAM DATE/TIME: 02/02/2018 21:19 [facility] COMPARISON: CHEST SINGLE AP, February 02, 2018, 19:19. INDICATIONS : Short of breath. DOSE: 8.1 mCi Tc99m MAA IV 2.3 mCi Tc99m DTPA aerosol MEDICAL HISTORY : Renal disease, end stage. Chronic obstructive pulmonary disease. Congestive heart failure. SURGICAL HISTORY : Open heart surgery. ENCOUNTER: Initial ACUITY: 1 day PAIN SCALE: 2/10 LOCATION: Bilateral chest TECHNIQUE: Following five minutes of tidal breathing of DTPA aerosol, planar images of the lungs were performed in eight projections. The patient was then injected with MAA, and eight-view perfusion scan was perf ormed. FINDINGS: There are no focal segmental or subsegmental ventilation/perfusion mismatches to elevate likelihood o f pulmonary embolism. There is a matched defect most conspicuously involving the dependent posterior right lung base matching chest radiographic abnormality. The lesion is generally less homogeneous and normal than the perfusion. CONCLUSION: Strictly indeterminate scan tending toward a lower probability of pulmonary embolism given the config uration Tavares Baker MD on February 02, 2018 at 21:56 Board Certified Radiologist. This report was verified electronically.
[2018-02-02] MEDS: LABETALOL HCL 100 MG/20 ML VIAL IV PUSH PRN (22:15)
[2018-02-03] VITALS (17 sets, daily range): BP systolic 127–192; BP diastolic 61–88; PULSE 60–76; RESP 15–17; TEMP 98.2–99.2; O2SAT 96–99
[2018-02-03] MEDS: HEPARIN-D5W 25,000 U/250 ML 250 ML IV PRN ×2 (00:18→21:48)
[2018-02-03] MEDS: niCARdipine 25 MG/NS 250 ML Vial2Bag or IV room IV PRN ×6 (00:37→19:58)
[2018-02-03 05:24] LABS: AUTOMATED NEUTROPHIL # 8.4 TH/MM3 (1.8-7.7); BASOPHIL % 0.5 % (0.0-2.0); EOSINOPHIL % 0.1 % (0.0-4.0); HEMATOCRIT 27.5 % (39.0-51.0); HEMOGLOBIN 8.9 GM/DL (13.0-17.0); LYMPH % 3.1 % (9.0-44.0); LYMPHOCYTE # 0.3 TH/MM3 (1.0-4.8); MEAN CELL VOLUME 93.2 FL (80.0-100.0); MEAN CORPUSCULAR HEMOGLOBIN 30.1 PG (27.0-34.0); MEAN CORPUSCULAR HGB CONC 32.3 % (32.0-36.0); MEAN PLATELET VOLUME 8.7 FL (7.0-11.0); MONO % 5.4 % (0.0-8.0); MONOCYTE # 0.5 TH/MM3 (0-0.9); NEUT % 90.9 % (16.0-70.0); PLATELET COUNT 209 TH/MM3 (150-450); RED BLOOD COUNT 2.95 MIL/MM3 (4.50-5.90); RED CELL DISTRIBUTION WIDTH 16.7 % (11.6-17.2); WHITE BLOOD COUNT 9.2 TH/MM3 (4.0-11.0)
[2018-02-03 05:51] LABS: BICARBONATE 23.4 MEQ/L (21.0-32.0); CALCIUM 8.9 MG/DL (8.5-10.1); CREATININE 7.92 MG/DL (0.60-1.30)
[2018-02-03 05:58] LABS: TROPONIN I 1.65 NG/ML (0.02-0.05)
[2018-02-03] MEDS ORDERED: ASPIRIN 81 MG CHEW TAB OG-TUBE ONE (07:00)
--- NOTE | 2018-02-03 07:39 | MB ---
cc: Amarjit George MD DATE: 02/02/2018 REASON FOR CONSULTATION: Left femoral neck fracture CONSULTING PHYSICIAN: Dr. Oswaldo Pressley. HISTORY OF PRESENT ILLNESS: John is a 63-year-old male who has multiple medical problems. He was in a wheelchair when he fell. He was reportedly fishing. He was unable to get back up because of his left hip pain. He presented to the Emergency Room where x-rays revealed a left femoral neck fracture. He has a history of end-stage renal failure and is on dialysis. He also has a left leg below-knee amputation. The patient was initially admitted to the orthopedic floor. He subsequently coded and is now intubated and sedated in the Intensive Care Unit. Chart was reviewed. No other history is available. PAST MEDICAL HISTORY: COPD, diabetes, hypertension, and coronary artery disease. PAST SURGICAL HISTORY: Left below-knee amputation, coronary artery bypass grafting, and dialysis access. MEDICATIONS: Please see EMR for complete list of inpatient medications. This was reviewed. ALLERGIES: CODEINE. FAMILY HISTORY: Positive for hypertension and diabetes. SOCIAL HISTORY: The patient denies tobacco or drug use. He drinks alcohol occasionally. REVIEW OF SYSTEMS: Unobtainable secondary to intubation and sedation. PHYSICAL EXAMINATION: GENERAL: The patient is a well-developed, well-nourished, 63-year-old male. He is intubated and sedated. He does open his eyes, but does not move his extremities. VITAL SIGNS: Temperature 98.5, pulse 71, respirations 16, blood pressure 165/75, O2 saturation is 99% on FIO2 of 60%. HEENT: Head: The patient is normocephalic. Pupils are equal. NECK: Soft, nontender. The trachea is in the midline. ABDOMEN: Soft, nontender, and nondistended. EXTREMITIES: Examination of his bilateral upper extremities reveals no obvious pain or deformity with shoulder, elbow and wrist motion. Good capillary refill in his fingers. Skin is intact. Examination of his left leg reveals healed below knee amputation. He has a significant contracture of his knee. He does appear to have some pain with any hip motion. Examination of his right leg reveals no obvious pain or deformity with hip, knee or ankle motion. Skin is intact. DIAGNOSTIC STUDIES: X-rays of the left hip are reviewed. X-rays reveal a minimally displaced left femoral neck fracture. LABORATORY DATA: The patient has a white blood cell count of 9.2, hematocrit of 27, platelet count of 209. INR is 1.4. He has elevated troponin of 1.65. IMPRESSION: 1. Left femoral neck fracture. 2. Renal failure with dialysis. 3. Cardiac arrest, status post resuscitation. 4. Coronary artery disease. PLAN: At this point, the patient is intubated and sedated in the Intensive Care Unit. He is not cleared for surgery. The patient will likely need surgery on his left hip. At this point, the fracture is well aligned and he may be a candidate for left hip pinning. If the fracture displaces, he may also need a left hip hemiarthroplasty. I will continue to follow the patient's progress. If patient stabilizes medically, I will plan on surgery. A mid-level provider in my office, nurse practitioner or PA, may see this patient on a follow-up basis and continue to implement the objective of this plan including: Starting or adjusting medications, injections of muscle, tendon, bursa or joints, cast application, orthotic or brace application, physical therapy, further radiographic studies including x-ray, MRI, CT, ultrasounds or bone scan, vascular studies, neurologic studies, or other specialist consultations, and proceeding with surgical management as appropriate. MD YOLETTE Garcia/CORBY , 07:21 AM , 07:38 AM
[2018-02-03] MEDS: SODIUM CHLORIDE 0.9% FLUSH 10 ML FLUSH IV FLUSH SCH ×2 (09:00→19:57)
--- NOTE | 2018-02-03 09:52 | HHI.CCPN ---
Subjective Remarks/Hospital Course 02/02: This is a 63yM with history of ESRD on IHD who presented 02/01 with left femoral neck fracture, admitted for work-up and possible operative fixation. He was found unresponsive in PEA arrest on the floor. ACLS ensued. ROSC was obtained. Dr. Pat met the patient upon arrival to the ICU. Patient is unresponsive and no additional information is available from the patient. ROS unobtainable. 02/03: Remains comatose, orally intubated on mechanical ventilation, not on any sedation. On nicardipine drip for hypertension. Suspect severe anoxic brain injury. Chest x-ray postintubation reveals right lower lobe infiltrate raising suspicion for aspiration. Awaiting EEG. Objective Vital Signs Date Time Temp Pulse Resp B/P (MAP) Pulse Ox O2 Delivery O2 Flow Rate FiO2 02/03/18 08:05 96 60 02/03/18 06:00 71 02/03/18 04:15 165/75 02/03/18 04:00 98.5 16 02/03/18 01:00 Mechanical Ventilator 02/02/18 18:30 15.00 Intake and Output 02/03/18 02/03/18 02/04/18 08:00 16:00 00:00 Intake Total 158.6 ml Output Total 350 ml Balance -191.4 ml Result Diagram: 02/03/18 0450 02/03/18 0450 Other Results Laboratory Tests Test 02/02/18 18:50 Blood Gas Puncture Site RT RADIAL Blood Gas Patient Temperature 98.6 Blood Gas HCO3 19 mmol/L (22-26) Blood Gas Base Excess -6.4 mmol/L (-2-2) Blood Gas Oxygen Saturation 97 % (90-100) Arterial Blood pH 7.32 (7.380-7.420) Arterial Blood Partial Pressure CO2 37 mmHg (38-42) Arterial Blood Partial Pressure O2 289 mmHg (61-120) Arterial Blood Oxygen Content 13.1 Vol % (12.0-20.0) Arterial Blood Carboxyhemoglobin 1.3 % (0-4) Arterial Blood Methemoglobin 1.2 % (0-2) Blood Gas Hemoglobin 9.1 G/DL (12.0-16.0) Oxygen Delivery Device VENTILATOR Blood Gas Ventilator Setting PRVC/AC Blood Gas Inspired Oxygen 100 % Imaging Last Impressions Pelvis X-Ray 02/01/18 0000 Signed Impressions: Service Date/Time: Thursday, February 01, 2018 20:50 - CONCLUSION: Left femoral neck fracture Tavares Baker MD Femur X-Ray 02/01/18 0000 Signed Impressions: Service Date/Time: Thursday, February 01, 2018 20:52 - CONCLUSION: Left femoral neck fracture Tavares Baker MD Chest X-Ray 02/01/18 0000 Signed Impressions: Service Date/Time: Thursday, February 01, 2018 21:23 - CONCLUSION: Mild right base infiltrate or contusion and possible small effusion. Tavares Baker MD Objective Remarks gen: middle-aged male, lying in bed, comatose, unresponsive. heent: nc. at. pupils are 3mm, disconjugate. equal, sluggish but reactive. mucous membranes moist. neck: no jvd. trachea midline. chest: intubated, on prvc 50% fio2. breathes over the vent. equal chest rise cv: normal rate, regular rhythm. sinus. abd: soft, nontender, nondistended. no guarding. extr: evidence of left BKA. extremities are cool, poorly perfused. left forearm avf with palpable thrill. neuro: GCS 3. pupils as above. negative cough. negative gag. negative corneals. breaths over vent. EKG: prelim interpretation: NSR with LVH. no st-t-wave abnormalities. Bedside Critical Care Echocardiography 02/02 post code: grossly preserved biventricular function. some evidence of RV pressure overload with RVSP estimated in the 60s. IVC dilated without respiratory variation. no pericardial effusion. A/P Assessment and Plan Assessment: 63yM with ESRD and new left femoral neck fracture found in PEA arrest. critically ill. will complete work-up and laboratory assessment. differential includes OR, PE, fat embolism, electrolyte abnormality, respiratory arrest from narcotic pain medication. Active Problems: Hypoxic Ischemic Encephalopathy Acute hypoxic and hypercarbic respiratory failure s/p PEA arrest Acute anion gap metabolic acidosis ESRD on IHD left femoral neck fracture Plan: - frequent neuro checks -Not on any sedation, remains comatose raising concern for anoxic brain injury - CT brain negative for bleed. - vent bundle, hob elevated, nebs - wean fio2 for goal spo2 > 90% - no weaning of mechanical ventilation until neuro exam improves - VQ scan (ESRD) read as low probability for PE -We will obtain rayo cultures and initiate empiric Zosyn for suspected aspiration. -Elevated troponin with history of CAD with prior CABG. On heparin GTT. Start aspirin. Cardiology consult requested in view of possible N STEMI with cardiac arrest. -Nicardipine gtt. to control blood pressure. -On heparin for anticoagulation. Started aspirin in view of elevated troponin. - nephrology following for hemodialysis -Orthopedics following for left femoral neck fracture. Not cleared for surgery at this time. - hold on any operative intervention until more critical issues have been addressed. -Consult neurology for further evaluation of encephalopathy which is most likely secondary to severe anoxic brain injury. Consult palliative care to assist with deciding goals of therapy as prognosis appears poor secondary to comatose state following cardiac arrest not requiring any sedation. Critical care time: 40 minutes, exclusive of separately billable procedures. Jordan Salter MD Feb 03, 2018 09:52
[2018-02-03] MEDS: DOCUSATE SODIUM 50 MG/SENNA 8.6 MG TAB PO SCH ×2 (10:09→19:58)
[2018-02-03] MEDS: INSULIN ASPART SUPPLEMENTAL SCALE SQ SCH ×4 (10:09→22:52)
[2018-02-03 11:41] LABS: BACTERIA, URINE MANY /hpf; BILIRUBIN, URINE NEG (NEG); BLOOD, URINE MOD (NEG); GLUCOSE,URINE 1000 mg/dL (NEG); KETONE, URINE 10 mg/dL (NEG); NITRITE,URINE NEG (NEG); TRANSITIONAL EPI CELLS, URINE 2 /hpf; URINE COLOR YELLOW (YELLW/STRAW); URINE LEUKOCYTE ESTERASE MOD (NEG); WHITE BLOOD CELL CLUMPS MANY
[2018-02-03 12:27] LABS: HEMATOCRIT 28.4 % (39.0-51.0); HEMOGLOBIN 9.1 GM/DL (13.0-17.0); MEAN CELL VOLUME 93.4 FL (80.0-100.0); MEAN CORPUSCULAR HGB CONC 32.2 % (32.0-36.0); MEAN PLATELET VOLUME 8.1 FL (7.0-11.0); PLATELET COUNT 225 TH/MM3 (150-450); RED BLOOD COUNT 3.04 MIL/MM3 (4.50-5.90)
[2018-02-03] MEDS: PIPERACIL-TAZO 2.25 GM PREMIX 50 ML IV SCH ×2 (12:39→18:55)
[2018-02-03 12:57] LABS: ALBUMIN 3.5 GM/DL (3.4-5.0); AST (GOT) 39 U/L (15-37); BLOOD UREA NITROGEN 47 MG/DL (7-18); CALCIUM 8.8 MG/DL (8.5-10.1); CHLORIDE 102 MEQ/L (98-107); GLOMERULAR FILTRATION RATE 6 ML/MIN (>89); GLUCOSE,RANDOM 197 MG/DL (74-106); MAGNESIUM 2.6 MG/DL (1.5-2.5); SODIUM (NA) 139 MEQ/L (136-145)
[2018-02-03 12:58] LABS: ALT (GPT) 45 U/L (12-78); PHOSPHORUS 7.9 MG/DL (2.5-4.9)
[2018-02-03 13:06] LABS: ALKALINE PHOSPHATASE 85 U/L (45-117); FREE T4 0.89 NG/DL (0.76-1.46); TOTAL BILIRUBIN ADULT 0.6 MG/DL (0.2-1.0); TOTAL PROTEIN 7.5 GM/DL (6.4-8.2)
[2018-02-03 13:15] LABS: TROPONIN I 1.84 NG/ML (0.02-0.05)
--- NOTE | 2018-02-03 14:12 | PD.CONS ---
Consult Service Palliative Care Consult Requested By Dr. Salter. Primary Care Physician [facility]. Reason for Consultation a. To assist with evaluation and management of symptoms including: shortness of breath. b. To assist medical decision maker(s) with: better understanding of current medical conditions; weighing benefits/burdens of medical treatment options; making medical treatment decisions. . HPI History of Present Illness Mr. Macdonald medical history significant for diabetes mellitus, end-stage renal disease on dialysis, CAD status post CABG, COPD and left BKA. Patient presented to ED on 02/01/18 for evaluation of left hip pain secondary to mechanical fall. As per medical records, patient fell from his seated walker while he was fishing and landed on his left side. Pelvis x-ray revealing left femoral neck fracture. Chest x-ray with mild right base infiltrate or contusion and possible small effusion. ED laboratory workup revealing WBC 6.6, Hgb 8.6, platelet count 217. BUN/creatinine 29/6.21. Patient was admitted for further management. Clinical course complicated by PEA arrest on the floor, ACLS medications initiated with ROS. Patient was intubated and placed on mechanical ventilation. Nephrology has been consulted, patient is ESRD hemodialysis dependent, being seen by Dr. Beach in [facility]. Palliative care has been consulted for clarifications of goals of care, suspected severe anoxic brain injury status post [place] arrest. Patient intubated on mechanical ventilation since yesterday, comatose without sedation. Head CT 02/02- for acute process. Lung V/ Q scan with low probability for PE. Patient seen in surgical ICU. Endotracheally intubated on mechanical ventilation. Unresponsive to verbal or tactile stimuli. Bilateral wrists decerebrate posturing noted. Currently on nicardipine drip for hypertension. Neurology and cardiology has been consulted. Laboratory workup today revealing WBC 9.0, Hgb stable at 9.1, platelet count 225. BUN/creatinine 47/8.50. Nephrology following, patient on hemodialysis Tuesday, Tuesday and Tuesday. AV fistula in left arm patent. Case discussed with Dr. hebert bedside RN. Telephone call to patient's daughter Bethany Anna . Left message on voicemail. Nursing notes from 02/02 reports that daughter was notified no change in clinical condition. Patient appears that he recently moved from [place], primary care doctor listed as [facility]. Spoke with family practice, they report that no advanced directives or living will is in chart. Contact information same for daughter Bethany Anna. Spoke with patient's rn utilization management um Dr. Casey Beach. He also reports that patient recently moved from [place] to this area. No advanced directives or living will on records, no contact information for next of kin. Follow-up telephone conversation with patient's daughter Bethany Anna. In this first visit, reviewed the role of palliative care in advanced illness in regards to symptom management as well as support surrounding goals of care and advance care planning. Daughter receptive to telephone conversation. Obtained patient's past medical history and psychosocial history. Reviewed events leading to this hospitalization, clinical course and current medical management. Daughter reports that patient just moved in October from [place]. Residing independently with friend. Patient with multiple comorbidities to include DM, end-stage renal disease on hemodialysis, severe CAD status post first triple CABG in his 40s and second triple CABG in his 50s. Daughter reports the patient also has CHF and COPD. Shared concerns of patient's clinical condition with suspected anoxic brain injury. Reviewed recommendations by neurology, Dr. Prasad to allow a few more days to evaluate clinical condition. Daughters Bethany and Carmen verbalized that patient has been very cleared in the past not wishing to live on life support if his prognosis is poor. Risks, benefits and limitations of cardiac code discussed with family given current clinical condition, family electing alternate code/ intubation only. They are requesting that in the setting of a cardiac arrest, allow patient to naturally and peacefully at that time. Family receptive to meet with palliative care this incoming Tuesday 02/06 at 11:30 AM. Case discussed with Dr. Salter. . Function/Cognitive Trajectory As per daughter Bethany, patient independent with ADLs prior to this acute event. Left below the knee amputation, ambulating with Rollator walker. No cognitive deficit reported. . Review of Systems ROS Limitations: Clinical Condition, Intubated, Unresponsive Constitutional: DENIES: Fever Eyes: DENIES: Eye inflammation Ears, nose, mouth, throat: DENIES: Nasal discharge, Oral lesions, Running Nose Cardiovascular: DENIES: Lower Extremity Edema Gastrointestinal: DENIES: Black stools, Bloody stools, Diarrhea, Vomiting Integumentary: COMPLAINS OF: Abnormal pigmentation Hematologic/Lymphatics: COMPLAINS OF: Bruising Immunologic/Allergic: DENIES: Eczema Neurologic: DENIES: Tremor Psychiatric: DENIES: Agitation Other ROS: Limited ROS secondary to patient's clinical condition, comatose on ventilator support. Past Family Social History Coded Allergies: codeine (Verified Allergy, Intermediate, 02/02/18) Past Medical History Diabetes mellitus COPD End-stage renal disease on hemodialysis Tuesday and Tuesday Hypertension Severe coronary artery disease with history of first triple CABG in his 40s, second triple CABG in his 50s Anemia chronic disease Depression Neuropathy Insomnia . Past Surgical History Left below the knee amputation Coronary artery bypass graft Dialysis access . Reported Medications Stress Formula with Iron Tab (Vit B Comp/C/FA/Iron Sulf/Tevin) 500-400-27 Tablet PO DAILY Bupropion HCl ER 24 HR (Bupropion HCl) 150 Mg Tab 150 Mg PO DAILY Combivent Respimat Inh (Ipratropium-Albuterol Inh) 20-[address] Half-[address]/Act Aero 1 Puff INH QID Coreg (Carvedilol) 25 Mg Tab 25 Mg PO BIDPC Demadex (Torsemide) 20 Mg Tab 100 Mg PO DAILY Flomax (Tamsulosin HCl) 0.4 Mg Cap 0.2 Mg PO TIDPC Flomax (Tamsulosin HCl) 0.4 Mg Cap 0.4 Mg PO DAILY Gabapentin 100 Mg Cap 200 Mg PO HS Gabapentin 100 Mg Cap 100 Mg PO AC BREAKFAST Isosorbide Dinitrate 10 Mg Tab 10 Mg PO TID Lantus Solostar Pen Inj (Insulin Glargine) 300 Unit/3 Ml Pen 36 Units SQ HS Lantus Solostar Pen Inj (Insulin Glargine) 300 Unit/3 Ml Pen 36 Units SQ HS Lisinopril 20 Mg Tab 20 Mg PO BID Novolog Flexpen Inj (Insulin Aspart) 300 Unit/3 Ml Pen 1 Units SQ TID Omeprazole 20 Mg Tab 20 Mg PO TIDAC Procrit Inj (Epoetin Armando) 4,000 Unit/Ml Inj 4,000 Units SQ 3XWEEK Sertraline (Sertraline HCl) 100 Mg Tab 100 Mg PO DAILY Trazodone (Trazodone HCl) 100 Mg Tablet 100 Mg PO HS Tylenol Extra Strength (Acetaminophen) 500 Mg Tablet DAILY Vaseline (White Petrolatum) 1 Gel Gel TOPICAL BID . Current Medications Medications (Trade) Dose Ordered Sig/Angela Route Start Time Stop Time Status Last Admin (NS Flush) 2 ml UNSCH PRN IV FLUSH 02/02/18 07:00 (NS Flush) 2 ml BID IV FLUSH 02/02/18 09:00 02/03/18 09:00 (Tylenol) 650 mg Q4H PRN PO 02/02/18 08:45 (Zofran Inj) 4 mg Q6H PRN IVP 02/02/18 08:45 02/02/18 17:23 (Compazine Supp) 25 mg Q12H PRN RECTAL 02/02/18 08:45 (Tylenol) 650 mg Q6H PRN PO 02/02/18 08:45 (Percocet 5-325 Mg) 1 tab Q6H PRN PO 02/02/18 08:45 (Percocet 10-325 Mg) 1 tab Q6H PRN PO 02/02/18 08:45 02/02/18 12:43 (Morphine Inj) 2 mg Q3H PRN IV PUSH 02/02/18 08:45 (Morphine Inj) 4 mg Q3H PRN IV PUSH 02/02/18 08:45 02/02/18 09:21 (Morphine Inj) 4 mg Q3H PRN IV PUSH 02/02/18 08:45 (Narcan Inj) 0.4 mg UNSCH PRN IV PUSH 02/02/18 08:45 ([place]-Colace) 1 tab BID PO 02/02/18 09:00 02/03/18 10:09 (Milk Of Magnesia Liq) 30 ml Q12H PRN PO 02/02/18 08:45 (Senokot) 17.2 mg Q12H PRN PO 02/02/18 08:45 (Dulcolax Supp) 10 mg DAILY PRN RECTAL 02/02/18 08:45 (Lactulose Liq) 30 ml DAILY PRN PO 02/02/18 08:45 (D50w (Vial) Inj) 50 ml UNSCH PRN IV PUSH 02/02/18 11:00 (Glucagon Inj) 1 mg UNSCH PRN OTHER 02/02/18 11:00 (NovoLOG SUPPLEMENTAL SCALE) 1 ACHS SLIDING SCALE SQ 02/02/18 12:00 02/03/18 12:00 Sodium Chloride 1,000 ml @ 0 mls/hr Q0M PRN OTHER 02/02/18 16:54 (Heparin Inj) 8,000 units UNSCH PRN IV FLUSH 02/02/18 17:00 Sodium Chloride 1,000 ml @ 200 mls/hr Q5H PRN IV 02/02/18 16:54 Sodium Chloride 1,000 ml @ 0 mls/hr Q0M PRN OTHER 02/02/18 16:54 (Mannitol Inj) 12.5 gm UNSCH PRN IV 02/02/18 17:00 Albumin Human 100 ml @ 60 mls/hr UNSCH PRN IV 02/02/18 17:00 (NS Flush) 5 ml UNSCH PRN IV FLUSH 02/02/18 17:00 (Heparin Inj) UNSCH PRN .XX 02/02/18 17:00 (Gentamicin Inj) 20 mg UNSCH PRN OTHER 02/02/18 17:00 (Zofran Inj) 4 mg UNSCH PRN IV PUSH 02/02/18 17:00 (Tylenol) 650 mg UNSCH PRN PO 02/02/18 17:00 (Benadryl) 25 mg UNSCH PRN PO 02/02/18 17:00 (Nitrostat Sl) 0.4 mg UNSCH PRN SL 02/02/18 17:00 (Catapres) 0.1 mg UNSCH PRN PO 02/02/18 17:00 (Epogen Inj) 10,000 units UNSCH PRN IV PUSH 02/02/18 17:00 (Gelfoam 12 Mm/7 Mm Top) 1 foam UNSCH PRN TOP 02/02/18 17:00 Heparin Sodium/ Dextrose 250 ml @ 10 mls/hr TITRATE PRN IV 02/02/18 20:00 02/03/18 00:18 (Trandate Inj) 20 mg Q15M PRN IV PUSH 02/02/18 21:00 02/02/18 22:15 (Apresoline Inj) 10 mg Q30M PRN IV PUSH 02/02/18 21:00 02/02/18 21:08 Nicardipine HCl 25 mg/Sodium Chloride 250 ml @ 50 mls/hr TITRATE PRN IV 02/03/18 00:30 02/03/18 10:38 (Aspirin Chew) 81 mg DAILY OG-TUBE 02/04/18 09:00 Piperacillin Sod/ Tazobactam Sod 50 ml @ 100 mls/hr Q8H IV 02/03/18 11:00 02/03/18 12:39 Family History Hypertension and diabetes . Substance Use Tobacco: None reported. Alcohol: Socially. Prescription med abuse: None reported. Illicits: None reported. . Psychosocial History Patient originally from [place]. Moved to [place] in October 2017. He is since 2000, has 4 children: Bethany, Carmen, Jayne and Tyler -all residing in [place]. 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 . Spiritual/Cultural Factors Pentecostal affiliation. . Health Care Surrogate(s): Unknown if advanced directives have been completed. Family to follow-up. . Today's verbally stated goals: Aggressive management short of no cardiac code. . Ethical and Legal Issues No ethical legal issues identified at this time. . Physical Exam Vital Signs Date Time Temp Pulse Resp B/P (MAP) Pulse Ox O2 Delivery O2 Flow Rate FiO2 02/03/18 10:38 80 156/69 02/03/18 08:05 96 60 02/03/18 06:00 71 02/03/18 04:48 99 60 02/03/18 04:15 69 165/75 02/03/18 04:00 98.5 69 16 155/72 (99) 99 02/03/18 04:00 69 02/03/18 04:00 80 02/03/18 02:45 69 133/60 02/03/18 02:00 69 02/03/18 01:26 69 141/64 02/03/18 01:01 97 80 02/03/18 01:00 99 Mechanical Ventilator 80 02/03/18 01:00 80 02/03/18 00:37 72 180/84 02/03/18 00:00 98.6 61 17 184/84 (117) 99 02/03/18 00:00 61 02/03/18 00:00 100 02/02/18 22:00 78 02/02/18 21:30 99 Mechanical Ventilator 100 02/02/18 21:00 97 100 02/02/18 20:48 100 100 02/02/18 20:00 50 02/02/18 20:00 97.9 70 21 201/93 (129) 99 02/02/18 20:00 73 02/02/18 19:30 100 97 02/02/18 19:00 87 Mechanical Ventilator 50 4/19/18 18:51 93 100 02/02/18 18:30 15.00 02/02/18 16:00 75 02/02/18 16:00 97.9 70 18 152/76 (101) 96 02/02/18 14:00 75 Exam CONSTITUTIONAL/GENERAL: This is an adequately nourished patient, in no apparent distress. TUBES/LINES/DRAINS: ETT, OG, bilateral soft wrist restraints, PIV's. SKIN: Pale. No jaundice, rashes, or lesions. Ecchymoses on upper extremities. No wounds seen anteriorly. Skin temperature appropriate. Not diaphoretic. Very dry skin HEAD: Atraumatic. Normocephalic. EYES: No scleral icterus. No injection or drainage. Fundi not examined. ENT: Unable to evaluate hearing secondary to clinical condition. Nose without bleeding or purulent drainage. Moist oral mucosa. NECK: Trachea midline. Supple. CARDIOVASCULAR: Regular rate and rhythm without murmurs, gallops, or rubs. RESPIRATORY/CHEST: Symmetric, unlabored respirations. Clear to auscultation. Endotracheally intubated on mechanical ventilation. GASTROINTESTINAL: Abdomen soft, round, non-tender. Bowel sounds present. GENITOURINARY: Without palpable bladder distension. MUSCULOSKELETAL: Extremities without clubbing, cyanosis, or edema. Left below the knee amputation. NEUROLOGICAL: Comatose. Unresponsive to verbal or tactile stimuli. PSYCHIATRIC: Unable to assess secondary to clinical condition, comatose. . Diagnostic Tests Laboratory Laboratory Tests Test 02/01/18 21:20 02/02/18 18:30 02/02/18 18:36 02/02/18 18:50 White Blood Count 6.6 TH/MM3 (4.0-11.0) 11.2 TH/MM3 (4.0-11.0) Red Blood Count 2.82 MIL/MM3 (4.50-5.90) 3.31 MIL/MM3 (4.50-5.90) Hemoglobin 8.6 GM/DL (13.0-17.0) 9.8 GM/DL (13.0-17.0) Hematocrit 25.9 % (39.0-51.0) 31.6 % (39.0-51.0) Mean Corpuscular Volume 91.8 FL (80.0-100.0) 95.4 FL (80.0-100.0) Mean Corpuscular Hemoglobin 30.6 PG (27.0-34.0) 29.6 PG (27.0-34.0) Mean Corpuscular Hemoglobin Concent 33.3 % (32.0-36.0) 31.1 % (32.0-36.0) Red Cell Distribution Width 16.2 % (11.6-17.2) 17.1 % (11.6-17.2) Platelet Count 217 TH/MM3 (150-450) 271 TH/MM3 (150-450) Mean Platelet Volume 8.8 FL (7.0-11.0) 8.9 FL (7.0-11.0) Neutrophils (%) (Auto) 86.3 % (16.0-70.0) Lymphocytes (%) (Auto) 5.1 % (9.0-44.0) Monocytes (%) (Auto) 5.9 % (0.0-8.0) Eosinophils (%) (Auto) 1.6 % (0.0-4.0) Basophils (%) (Auto) 1.1 % (0.0-2.0) Neutrophils # (Auto) 5.7 TH/MM3 (1.8-7.7) Lymphocytes # (Auto) 0.3 TH/MM3 (1.0-4.8) Monocytes # (Auto) 0.4 TH/MM3 (0-0.9) Eosinophils # (Auto) 0.1 TH/MM3 (0-0.4) Basophils # (Auto) 0.1 TH/MM3 (0-0.2) CBC Comment DIFF FINAL Differential Comment Prothrombin Time 12.3 SEC (9.8-11.6) 14.0 SEC (9.8-11.6) Prothromb Time International Ratio 1.2 RATIO 1.4 RATIO Blood Urea Nitrogen 29 MG/DL (7-18) 37 MG/DL (7-18) Creatinine 6.21 MG/DL (0.60-1.30) 7.73 MG/DL (0.60-1.30) Random Glucose 114 MG/DL (74-106) 213 MG/DL (74-106) Calcium Level 8.8 MG/DL (8.5-10.1) 9.2 MG/DL (8.5-10.1) Sodium Level 139 MEQ/L (136-145) 141 MEQ/L (136-145) Potassium Level 4.3 MEQ/L (3.5-5.1) 3.6 MEQ/L (3.5-5.1) Chloride Level 104 MEQ/L (98-107) 102 MEQ/L (98-107) Carbon Dioxide Level 26.6 MEQ/L (21.0-32.0) 18.7 MEQ/L (21.0-32.0) Anion Gap 8 MEQ/L (5-15) 20 MEQ/L (5-15) Estimat Glomerular Filtration Rate 9 ML/MIN (>89) 7 ML/MIN (>89) Lactic Acid Level 8.5 mmol/L (0.4-2.0) Activated Partial Thromboplast Time 26.4 SEC (24.3-30.1) Fibrinogen 328 mg/dL (227-377) Total Protein 7.8 GM/DL (6.4-8.2) Albumin 3.7 GM/DL (3.4-5.0) Alkaline Phosphatase 92 U/L (45-117) Aspartate Amino Transf (AST/SGOT) 43 U/L (15-37) Alanine Aminotransferase (ALT/SGPT) 35 U/L (12-78) Total Bilirubin 0.7 MG/DL (0.2-1.0) Total Creatine Kinase 299 U/L (39-308) Creatine Kinase MB 12.8 NG/ML (0.5-3.6) Troponin I 0.38 NG/ML (0.02-0.05) Blood Gas Puncture Site RT RADIAL Blood Gas Patient Temperature 98.6 Blood Gas HCO3 19 mmol/L (22-26) Blood Gas Base Excess -6.4 mmol/L (-2-2) Blood Gas Oxygen Saturation 97 % (90-100) Arterial Blood pH 7.32 (7.380-7.420) Arterial Blood Partial Pressure CO2 37 mmHg (38-42) Arterial Blood Partial Pressure O2 289 mmHg (61-120) Arterial Blood Oxygen Content 13.1 Vol % (12.0-20.0) Arterial Blood Carboxyhemoglobin 1.3 % (0-4) Arterial Blood Methemoglobin 1.2 % (0-2) Blood Gas Hemoglobin 9.1 G/DL (12.0-16.0) Oxygen Delivery Device VENTILATOR Blood Gas Ventilator Setting [facility]/ Blood Gas Inspired Oxygen 100 % Test 02/02/18 18:55 02/03/18 04:11 02/03/18 04:15 02/03/18 04:50 Ammonia 24 MCMOL/L (11-32) Nasal Screen MRSA (PCR) MRSA NOT DETECTED (NOT Total Creatine Kinase 345 U/L (39-308) 351 U/L (39-308) Creatine Kinase MB 14.7 NG/ML (0.5-3.6) Creatine Kinase MB % 4.3 % (0.0-4.0) White Blood Count 9.2 TH/MM3 (4.0-11.0) Red Blood Count 2.95 MIL/MM3 (4.50-5.90) Hemoglobin 8.9 GM/DL (13.0-17.0) Hematocrit 27.5 % (39.0-51.0) Mean Corpuscular Volume 93.2 FL (80.0-100.0) Mean Corpuscular Hemoglobin 30.1 PG (27.0-34.0) Mean Corpuscular Hemoglobin Concent 32.3 % (32.0-36.0) Red Cell Distribution Width 16.7 % (11.6-17.2) Platelet Count 209 TH/MM3 (150-450) Mean Platelet Volume 8.7 FL (7.0-11.0) Neutrophils (%) (Auto) 90.9 % (16.0-70.0) Lymphocytes (%) (Auto) 3.1 % (9.0-44.0) Monocytes (%) (Auto) 5.4 % (0.0-8.0) Eosinophils (%) (Auto) 0.1 % (0.0-4.0) Basophils (%) (Auto) 0.5 % (0.0-2.0) Neutrophils # (Auto) 8.4 TH/MM3 (1.8-7.7) Lymphocytes # (Auto) 0.3 TH/MM3 (1.0-4.8) Monocytes # (Auto) 0.5 TH/MM3 (0-0.9) Eosinophils # (Auto) 0.0 TH/MM3 (0-0.4) Basophils # (Auto) 0.0 TH/MM3 (0-0.2) CBC Comment DIFF FINAL Differential Comment Blood Urea Nitrogen 45 MG/DL (7-18) Creatinine 7.92 MG/DL (0.60-1.30) Random Glucose 234 MG/DL (74-106) Calcium Level 8.9 MG/DL (8.5-10.1) Sodium Level 141 MEQ/L (136-145) Potassium Level 4.9 MEQ/L (3.5-5.1) Chloride Level 102 MEQ/L (98-107) Carbon Dioxide Level 23.4 MEQ/L (21.0-32.0) Anion Gap 16 MEQ/L (5-15) Estimat Glomerular Filtration Rate 7 ML/MIN (>89) Troponin I 1.65 NG/ML (0.02-0.05) Test 02/03/18 06:00 02/03/18 10:30 02/03/18 12:12 Activated Partial Thromboplast Time 31.5 SEC (24.3-30.1) Urine Color YELLOW (YELLW/STRAW) Urine Turbidity CLOUDY (CLEAR) Urine pH 6.0 (5.0-8.5) Urine Specific Ledger 1.023 (1.002-1.035) Urine Protein 300 mg/dL (NEG-TRACE) Urine Glucose (UA) 1000 mg/dL (NEG) Urine Ketones 10 mg/dL (NEG) Urine Occult Blood MOD (NEG) Urine Nitrite NEG (NEG) Urine Bilirubin NEG (NEG) Urine Urobilinogen LESS THAN 2.0 MG/DL (LESS Urine Leukocyte Esterase MOD (NEG) Urine RBC /hpf (0-3) Urine WBC /hpf (0-5) Urine WBC Clumps MANY (NONE) Urine Transitional Epithelial Cells 2 /hpf (NONE) Urine Bacteria MANY /hpf (NONE) Microscopic Urinalysis Comment CATH-CULTURE IND White Blood Count 9.0 TH/MM3 (4.0-11.0) Red Blood Count 3.04 MIL/MM3 (4.50-5.90) Hemoglobin 9.1 GM/DL (13.0-17.0) Hematocrit 28.4 % (39.0-51.0) Mean Corpuscular Volume 93.4 FL (80.0-100.0) Mean Corpuscular Hemoglobin 30.0 PG (27.0-34.0) Mean Corpuscular Hemoglobin Concent 32.2 % (32.0-36.0) Red Cell Distribution Width 17.0 % (11.6-17.2) Platelet Count 225 TH/MM3 (150-450) Mean Platelet Volume 8.1 FL (7.0-11.0) Blood Urea Nitrogen 47 MG/DL (7-18) Creatinine 8.50 MG/DL (0.60-1.30) Random Glucose 197 MG/DL (74-106) Total Protein 7.5 GM/DL (6.4-8.2) Albumin 3.5 GM/DL (3.4-5.0) Calcium Level 8.8 MG/DL (8.5-10.1) Phosphorus Level 7.9 MG/DL (2.5-4.9) Magnesium Level 2.6 MG/DL (1.5-2.5) Alkaline Phosphatase 85 U/L (45-117) Aspartate Amino Transf (AST/SGOT) 39 U/L (15-37) Alanine Aminotransferase (ALT/SGPT) 45 U/L (12-78) Total Bilirubin 0.6 MG/DL (0.2-1.0) Sodium Level 139 MEQ/L (136-145) Potassium Level 4.7 MEQ/L (3.5-5.1) Chloride Level 102 MEQ/L (98-107) Carbon Dioxide Level 27.0 MEQ/L (21.0-32.0) Anion Gap 10 MEQ/L (5-15) Estimat Glomerular Filtration Rate 6 ML/MIN (>89) Lactic Acid Level 1.4 mmol/L (0.4-2.0) Total Creatine Kinase 340 U/L (39-308) Creatine Kinase MB 10.8 NG/ML (0.5-3.6) Creatine Kinase MB % 3.2 % (0.0-4.0) Troponin I 1.84 NG/ML (0.02-0.05) Free Thyroxine 0.89 NG/DL (0.76-1.46) Thyroid Stimulating Hormone 3rd Gen 1.190 uIU/ML (0.358-3.740) Result Diagram: 02/03/18 1212 02/03/18 1212 Microbiology Microbiology Date/Time Source Procedure Growth Status 02/03/18 10:30 Sputum Endotracheal Gram Stain Pending Received 02/03/18 10:30 Sputum Endotracheal Sputum Culture Pending Received 02/03/18 10:30 Urine Catheterized Urine Urine Culture Pending Received Imaging Last Impressions Lung Scan-VQ Nuclear Medicine 02/02/18 0000 Signed Impressions: Service Date/Time: January 21:19 - CONCLUSION: Strictly indeterminate scan tending toward a lower probability of pulmonary embolism given the configuration Tavares Baker MD Head CT 02/02/18 0000 Signed Impressions: Service Date/Time: January 19:48 - CONCLUSION: Changes in the right frontal region most consistent with remote injury. No definite acute intracranial findings Layering fluid in the sphenoid sinus Tavares Baker MD Chest X-Ray 02/02/18 0000 Signed Impressions: Service Date/Time: January 19:19 - CONCLUSION: Endotracheal tube placement is satisfactory. Worsening aeration. Tavares Baker MD Pelvis X-Ray 02/01/18 0000 Signed Impressions: Service Date/Time: Thursday, February 01, 2018 20:50 - CONCLUSION: Left femoral neck fracture Tavares Baker MD Femur X-Ray 02/01/18 Signed Impressions: Service Date/Time: Thursday, February 01, 2018 20:52 - CONCLUSION: Left femoral neck fracture Tavares Baker MD Procedures * 02/02/18 -endotracheal intubation . Patient/Family Conference Present at Family Conference: Daughters Bethany and Carmen. Family Conference Time (mins): 41 Family Conference Location: Telephone Issues Discussed: * Palliative care role, purpose, approach * Additional medical, psychosocial, and spiritual history * Patients general health, functional status, and cognitive changes in the months leading up to the current hospitalization * Patient/family understanding of the current medical problems -suspected anoxic brain injury status post PEA arrest * Patient/family understanding of prognosis -guarded prognosis * Patients goals of care as best understood from advance directives and/or conversations and/or values * Current medical treatment options and benefits/burdens of those options * Likely scenarios comparing ongoing aggressive care with a transition to comfort measures only/withdrawal of life support * Questions answered to the best of my ability * Palliative care contact information provided * Risks, benefits and limitations of chest compressions, defibrillation, ACLS medications. . Assessment and Plan Disease Oriented Problem List: (1) Acute respiratory failure with hypoxia and hypercarbia (2) Hypoxic ischemic encephalopathy (3) End stage renal disease (4) PEA (Pulseless electrical activity) (5) Hip fracture (6) Diabetes Symptom Scale: (1) Dyspnea 0-10 Scale: Unable to quantify (2) Encephalopathy acute 0-10 Scale: Unable to quantify Pertinent Non-Medical Issues Psychosocial: Patient originally from [place]. Moved to [place] in October 2017. He is since 2000, has 4 children: Carmen Sims, Jayne and Tyler -all residing in [place]. 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 Spiritual: No buddhist affiliation. Legal: Unknown at this time if advanced directives have been completed. Ethical issues impacting care: No ethical issues identified at this time. . Important Contacts Daughter Bethany Anna . Daughter Carmen Daughter Jayne Son Tyler . Prognosis Mr. Macdonald medical history significant for diabetes mellitus, end-stage renal disease on dialysis, CAD status post CABG, COPD and left BKA. Patient presented to ED on 02/01/18 for evaluation of left hip pain secondary to mechanical fall. Pelvis x-ray revealing left femoral neck fracture. Clinical course complicated by PEA arrest on the floor, patient intubated and placed on ventilator support. Patient comatose, suspected anoxic brain injury. Overall prognosis is very poor. . Code Status: Alternative Code Plan * CODE STATUS: Alternate code/intubation only. * HEALTHCARE DECISION-MAKING: Patient incapacitated for medical decision-making secondary to comatose state. Unknown at this time if advanced directives have been completed. Patient recently relocated from [place], confirm with primary care doctor [facility] and nephrology Dr. Casey Beach , no advance directives on record. Daughters believe that advanced directives have been completed, there will contact other family members for information. In the absence of advance directives and as per [place] statue, healthcare proxy decision making falls to the majority of patient's children for which he has 4: Bethany, Carmen, Jayne and Tyler. * GOALS OF CARE: As per patient's children, goal of therapy is to continue aggressive management short of NO cardiac code, allow a few more days to reassess his clinical condition/prognosis. Daughters Bethany and Carmen verbalized that patient has been very cleared in the past about not wishing to live on life support if his prognosis is poor. Risks, benefits and limitations of cardiac code discussed with family given current clinical condition, family electing alternate code/intubation only. They are requesting that in the setting of another cardiac arrest, allow patient to naturally and peacefully at that time. Family receptive to meet with palliative care this incoming Tuesday 02/06 at 11:30 AM. Family to transition patient to comfort- directed care/withdrawal of life support early next week if anoxic brain injury is confirmed or overall poor prognosis for a meaningful recovery. * SYMPTOMS: =Dyspnea: Secondary to acute hypoxemic respiratory failure, history of COPD. Patient endotracheally intubated on mechanical ventilation. = Encephalopathy, suspected anoxic brain injury status post PEA arrest. Neurology following. Very poor prognosis given the above. * Palliative care contact information has been provided to patient's daughters. * Case discussed with Dr. Salter bedside RN. * Palliative care will continue to follow up for further clarification of goals of care as patient's clinical course continues to evolve. . Time Spent Total Floor Time (mins): 68 (Total time to include review of medical records, physical exam, goals of care conversation with patient's family, Case discussion with attending Dr. Salter and bedside RN.) >50% Counseling/Coord of Care: Yes Thank you for the opportunity to participate in the care of Mr. Macdonald. Attestation To help prompt me to consider important information that might be impacting today's encounter and assessment, information from prior notes written by myself or my colleagues may have been "brought forward" into today's note. My signature on this note, however, is an attestation that I personally performed the exam, history, and/or decision-making noted today, and, unless otherwise indicated, the interactions with patient, family, and staff as well as the review of records all occurred today. I also attest that the listed assessment and stated plan reflect my best clinical judgment today based on the combination of historical information, prior notes, and today's exam/ interactions. When time spent is documented, it refers only to time spent today by the signer, or if indicated, combined time spent today by collaborating physician/nurse practitioner. Lisa Lees Feb 03, 2018 14:12
--- NOTE | 2018-02-03 14:19 | MB ---
cc: Salvatore Gracia MD DATE: 02/03/2018 REASON FOR CONSULTATION: For evaluation of elevated troponins and abnormal EKG. HISTORY OF PRESENT ILLNESS: This is a 63-year-old man admitted to the hospital 02/01/2018 with a left femoral neck fracture. Yesterday evening he arrested. He was found to be in PEA. The etiology of the arrest is not clear. Return of spontaneous circulation was obtained. The patient has a history of end-stage renal disease on hemodialysis. There is also mention in his chart history of history of hypertension, diabetes and previous bypass surgery. The details of his cardiac history are not clear. He has also had a left below knee amputation. The patient has been unresponsive since the event. Dialysis nurse mentioned that putting the dialysis cannulas in his arm, he opened his eyes, but that is as much responses as we have obtained. PAST MEDICAL HISTORY: Includes COPD, diabetes, end-stage renal disease, hypertension, coronary artery disease. PAST SURGICAL HISTORY: Includes bypass surgery, dialysis access to the left arm, left below knee amputation. CURRENT MEDICATIONS:. Charted. SOCIAL HISTORY: From the chart, it sounds like he is a nonsmoker. FAMILY HISTORY: Not available. PHYSICAL EXAMINATION: GENERAL: Exam reveals a man who appears older than his stated age. VITAL SIGNS: Charted. HEENT: Unremarkable. NECK: Shows absence of JVD or bruits. CHEST: Clear anteriorly. CARDIAC: S1, S2: Regular rate and rhythm. No S3 gallop. There is a 1/6 systolic ejection murmur. ABDOMEN: Soft. EXTREMITIES: Reveal left BKA. I cannot feel pulses in the right foot. I can feel the calcification of the right femoral artery, but cannot tell a pulse in it. LABORATORY DATA: EKG initially showed sinus rhythm with T-wave inversions in anterior leads, cannot exclude ischemia versus left ventricular hypertrophy. On the second EKG, the ST-T wave changes seem more prominent, but cannot exclude issues of lead placement. Troponins come from 0.38 to 1.65 to 1.84. His labs are charted. Chest x-ray is charted. IMPRESSION: Known coronary artery disease, now with ST changes on his electrocardiogram and elevated troponin. Non-ST elevation myocardial infarction appears likely. The issue is what caused his arrest. It is not easy to tell at this point. Neurologically, he appears severely impaired. RECOMMENDATIONS: He is currently on heparin drip and aspirin. These should be continued. If he recovers neurologically, he will need a cardiac catheterization. That will be challenging because we cannot go through the left arm easily and not clear because I cannot feel a good pulse in the right wrist where he might be difficult to access. Cardiac catheterization will not be performed if he does not wake up, however. Prognosis is very guarded. We will follow. MD LINDA Ge/MALCOLM , 02:01 PM , 02:18 PM
[2018-02-03 15:14] LABS: HEMOGLOBIN A1C 7.3 % (4.3-6.0)
--- NOTE | 2018-02-03 15:26 | MB ---
cc: Mirna Prasad MD DATE: 02/03/2018 HISTORY OF PRESENT ILLNESS: John Macdonald is a 63-year-old seen in neurological consultation with encephalopathy. The patient was admitted to the hospital with hip fracture and yesterday he was found unresponsive. He was coded, intubated. Apparently, it was prolonged code. He has a history of left above-knee amputation. History of chronic obstructive pulmonary disease, diabetes. He has end-stage renal disease, hypertension. Dialysis was in progress. NEUROLOGICAL EXAMINATION: Showed the patient to be unresponsive to verbal stimuli. Pupils were slightly reactive, about same size and about 3 mm. He seems to be able to maintain eyes open with some staring type of gaze, but no response to visual threat. Moderate to pronounced somatosensory stimulation over the chest disclosed a little bit of grimacing and a little bit of withdrawal of the limbs, but very minimal. Reflexes absent at the elbows and right knee and the right ankle. The right plantar response is none. DIAGNOSTIC STUDIES: CT brain is indicating old area of event, encephalomalacia in the right frontal head region. Today's WBC 9.0, hemoglobin 9.1, platelets 225. Chemistry today, sodium and potassium normal, BUN 47, creatinine 8.5. ASSESSMENT AND PLAN: Hypoxic/anoxic brain injury. It is too early to be more precise, though the initial findings are suggesting a significant brain injury. An EEG was obtained and brief review by tech, there may be a burst suppression pattern, but evidently I will be reviewing these later on today. There has been no overt seizure activity. Thank you for asking us to assist in his care and I will follow the neurological course. I talked to 2 daughters at bedside as apparently they just arrived from out of town. MD CHERISE Palumbo/CORBY , 02:52 PM , 03:25 PM
--- NOTE | 2018-02-03 17:25 | ECHRPT ---
Indication: CONCLUSIONS Moderately dilated left ventricle. Mild concentric left ventricular hypertrophy. The left ventricular systolic function is [id number] reduced with an estimated ejection fra ction in the range of 35%. The right ventricular systoilc function is severely decreased. Mitral annular calcification is present. Trace mitral valve regurgitation. Aortic valve sclerosis is present. There is mild tricuspid valve regurgitation. There is estimated mild pulmonary hypertension present ( 47 mmHg). BP: / HR: Rhythm: MEASUREMENTS (Male / Female) Normal Values Technical Quality: 2D ECHO LV Diastolic Diameter PLAX 6.0 cm 4.2 - 5.9 / 3.9 - 5.3 cm LV Systolic Diameter PLAX 5.5 cm IVS Diastolic Thickness 1.4 cm 0.6 - 1.0 / 0.6 - 0.9 cm LVPW Diastolic Thickness 0.8 cm 0.6 - 1.0 / 0.6 - 0.9 cm LV Relative Wall Thickness 0.4 RV Internal Dim ED PLAX 2.2 cm LA Systolic Diameter LX 4.2 cm 3.0 - 4.0 / 2.7 - 3.8 cm M-MODE Aortic Root Diameter MM 3.3 cm AV Cusp Separation MM 1.8 cm DOPPLER Mitral E Point Velocity 49.4 cm/s Mitral A Point Velocity 70.1 cm/s Mitral E to A Ratio 0.7 TR Peak Velocity 283.7 cm/s TR Peak Gradient 32.2 mmHg Right Atrial Pressure 15.0 mmHg Pulmonary Artery Systolic Pressu 47.2 mmHg Right Ventricular Systolic Press 47.2 mmHg FINDINGS LEFT VENTRICLE There is global left ventricular dysfunction. Moderately dilated left ventricle. Mild concentric left ventricular hypertrophy. The left ventricular systolic function is [id number] reduced with an estimated ejection fra ction in the range of 35%. RIGHT VENTRICLE The right ventricular systoilc function is severely decreased. LEFT ATRIUM The left atrial size is normal. RIGHT ATRIUM The right atrial size is normal. ATRIAL SEPTUM Normal atrial septal thickness without atrial level shunting by limited color doppler interrogation. AORTA The aortic root and proximal ascending aorta are normal in size on limited imaging. MITRAL VALVE Mitral annular calcification is present. Trace mitral valve regurgitation. AORTIC VALVE Aortic valve sclerosis is present. TRICUSPID VALVE There is mild tricuspid valve regurgitation. There is estimated mild pulmonary hypertension present ( 47 mmHg). PULMONARY VALVE No pulmonary valve regurgitation or stenosis. VESSELS The inferior vena cava is dilated. PERICARDIUM No pericardial effusion. Salvatore Gracia MD (Electronically Signed) Final Date:03 February 2018 17:25
--- NOTE | 2018-02-03 18:05 | HHI.NPPN ---
Subjective General Problems: Anemia, Hypertension Renal Failure: End Stage Renal Disease History of Present Illness 63-year-old gentleman with a past medical history of diabetes mellitus , Hypertension, coronary artery disease with history of CABG, and end stage renal disease on hemodialysis. Patient presented to emergency department by EMS after a fall from his seated walker while he was fishing landing on left side. Pelvis Xray is noted to have left femoral neck fracture. Nephrology was consulted for end stage renal disease and management of dialysis. Patient is followed by Dr. Beach and has dialysis on Tuesday, Tuesday, and Tuesday. Additional Remarks Patient seen in the afternoon, while on HD, remain on the vent. and sedated. Review of Systems General General Remarks Intubated and sedated. Objective Data Data Vital Signs Date Time Temp Pulse Resp B/P (MAP) Pulse Ox O2 Delivery O2 Flow Rate FiO2 02/03/18 17:05 99 60 02/03/18 16:00 68 02/03/18 16:00 60 02/03/18 16:00 98.2 68 15 192/88 (122) 99 02/03/18 14:00 66 02/03/18 12:00 76 02/03/18 12:00 60 02/03/18 12:00 99.2 76 17 149/72 (97) 99 02/03/18 10:38 80 156/69 02/03/18 10:00 62 02/03/18 08:05 96 60 02/03/18 08:00 60 02/03/18 08:00 60 02/03/18 08:00 98.9 60 16 127/62 (83) 99 02/03/18 07:00 99 Mechanical Ventilator 60 02/03/18 06:00 71 02/03/18 04:48 99 60 02/03/18 04:15 69 165/75 02/03/18 04:00 98.5 69 16 155/72 (99) 99 02/03/18 04:00 69 02/03/18 04:00 80 02/03/18 02:45 69 133/60 02/03/18 02:00 69 02/03/18 01:26 69 141/64 02/03/18 01:01 97 80 02/03/18 01:00 99 Mechanical Ventilator 80 02/03/18 01:00 80 02/03/18 00:37 72 180/84 02/03/18 00:00 98.6 61 17 184/84 (117) 99 02/03/18 00:00 61 02/03/18 00:00 100 02/02/18 22:00 78 02/02/18 21:30 99 Mechanical Ventilator 100 02/02/18 21:00 97 100 02/02/18 20:48 100 100 02/02/18 20:00 50 02/02/18 20:00 97.9 70 21 201/93 (129) 99 02/02/18 20:00 73 02/02/18 19:30 100 97 02/02/18 19:00 87 Mechanical Ventilator 50 02/02/18 18:51 93 100 02/02/18 18:30 15.00 -: 02/03/18 1212 02/03/18 1212 Microbiology 02/03/18 Aerobic Blood Culture, Received Pending 02/03/18 Anaerobic Blood Culture, Received Pending 02/03/18 Aerobic Blood Culture, Received Pending 02/03/18 Anaerobic Blood Culture, Received Pending 02/03/18 Gram Stain - Final, Resulted 02/03/18 Sputum Culture, Resulted Pending 02/03/18 Urine Culture, Received Pending Physical Exam General Appearance Remarks Intubated and sedated. Eyes Eye Exam: Pupils Equal Ears & Nose Ears & Nose Exam: Tympanic Membranes Normal Throat Throat Exam: Oral Mucosa [place] & Moist Neck Neck Exam: Neck Supple Pulmonary Resp Exam: Breath Sounds Equal, Rhonchi, Decreased Bases, Diminished Breath Sounds, Poor Inspiratory Effort Cardiology CV Exam: Regular, Normal Sinus Rhythm Gastrointestinal/Abdomen GI Exam: Soft, Non-Tender, Bowel Sounds Present Extremeties Extremities Exam: Moderate Edema, Pitting Edema Neurologic Neuro Exam: Sedated Assessment/Plan Problem List: (1) End stage renal disease ICD Codes: N18.6 - End stage renal disease Status: Acute Plan: End stage renal disease on hemodialysis on Tuesday, Tuesday, and Tuesday. AVF in left arm with positive thrill and bruit Epogen with dialysis for anemia. Patient seen during HD, BP is on higher side. Family has made him No Code. Neurology following. Follow Neuro. recommendation. HD now, removing 3 liters. (2) Hypertension ICD Codes: I10 - Essential (primary) hypertension Plan: continue home medications and monitor (3) Hip fracture ICD Codes: S72.009A - Fracture of unspecified part of neck of unspecified femur , initial encounter for closed fracture Status: Acute Plan: Ortho consulted (4) Diabetes ICD Codes: E11.9 - Type 2 diabetes mellitus without complications Plan: Maintain blood sugars between 140- 180 mg/dl (5) Anemia ICD Codes: D64.9 - Anemia, unspecified Plan: Epogen with dialysis Problem Qualifiers (1) Hip fracture: Qualified Codes: S72.002A - Fracture of unspecified part of neck of left femur , initial encounter for closed fracture Romulo Nascimento MD Feb 03, 2018 18:05
--- NOTE | 2018-02-03 20:13 | MG ---
cc: Mirna Prasad MD, Olimpio F MD REQUESTING PHYSICIAN: Dr. Salter An EEG was obtained on this 63-year-old patient awake and being evaluated for a right frontal remote injury. This EEG is showing generalized attenuation and bursts of a mixture of rhythms of high amplitude including some sharp/spike type of discharges. The pattern seems to repeat throughout and the duration of these bursts is variable from half a second to 3 or 4 seconds at most. The attenuation lasts from 1-5 seconds. INTERPRETATION: Abnormal electroencephalogram because of a burst suppression pattern suggesting a severe diffuse disturbance of cerebral function. This is often seen under anoxic injury. Mirna Sims. MD Shanice [facility] , 07:57 PM , 08:12 PM
[2018-02-04] VITALS (18 sets, daily range): BP systolic 115–163; BP diastolic 56–78; PULSE 61–74; RESP 12–19; TEMP 98.2–99.5; O2SAT 92–100
[2018-02-04] MEDS: niCARdipine 25 MG/NS 250 ML Vial2Bag or IV room IV PRN ×6 (02:00→11:08)
[2018-02-04] MEDS: PIPERACIL-TAZO 2.25 GM PREMIX 50 ML IV SCH ×3 (03:18→18:28)
[2018-02-04 04:54] LABS: HEMATOCRIT 26.5 % (39.0-51.0); HEMOGLOBIN 8.6 GM/DL (13.0-17.0); MEAN CELL VOLUME 92.2 FL (80.0-100.0); MEAN CORPUSCULAR HGB CONC 32.5 % (32.0-36.0); MEAN PLATELET VOLUME 8.2 FL (7.0-11.0); PLATELET COUNT 228 TH/MM3 (150-450); RED BLOOD COUNT 2.88 MIL/MM3 (4.50-5.90); RED CELL DISTRIBUTION WIDTH 17.1 % (11.6-17.2); WHITE BLOOD COUNT 8.7 TH/MM3 (4.0-11.0)
[2018-02-04 05:18] LABS: BICARBONATE 26.8 MEQ/L (21.0-32.0); CALCIUM 8.9 MG/DL (8.5-10.1); CREATININE 5.59 MG/DL (0.60-1.30)
[2018-02-04] MEDS: INSULIN ASPART SUPPLEMENTAL SCALE SQ SCH ×4 (08:11→21:29)
[2018-02-04] MEDS: ASPIRIN 81 MG CHEW TAB OG-TUBE SCH (08:12)
[2018-02-04] MEDS: SODIUM CHLORIDE 0.9% FLUSH 10 ML FLUSH IV FLUSH SCH ×2 (08:12→21:28)
[2018-02-04] MEDS: DOCUSATE SODIUM 50 MG/SENNA 8.6 MG TAB PO SCH ×2 (08:12→21:28)
--- NOTE | 2018-02-04 09:13 | EKG ---
Date Performed: 02/02/2018 Time Performed: 18:38:12 PTAGE: 63 years EKG: Sinus rhythm . Possible left ventricular hypertrophy Extensive ST-T changes are probably due to ventricular hypert rophy Abnormal ECG NO PREVIOUS TRACING DOCTOR: Marco Bunch Interpretating Date/Time 02/04/2018 09:09:54
[2018-02-04] MEDS ORDERED: PHENYTOIN INJ 1,000 MG in SODIUM CHLORIDE 0.9% INJ 100 ML IV ONE (11:00)
--- NOTE | 2018-02-04 12:30 | HHI.PR ---
Review/Management Daily Summary 02/04 seen this am spoke with daughters over phone an hour ago informed them of likelyhood of dx and prognosis not encouraging eeg yesterday today i saw lithe minute twitching chin considering entire picture, will give him a dilantin trial I suspect anoxic brain injury, likely irreversible plan repeat eeg tuesday Subjective Subjective Comments unchanged Active Medications Current Medications Medications (Trade) Dose Ordered Sig/Angela Route Start Time Stop Time Status Last Admin (NS Flush) 2 ml UNSCH PRN IV FLUSH 02/02/18 07:00 (NS Flush) 2 ml BID IV FLUSH 02/02/18 09:00 02/04/18 08:12 (Tylenol) 650 mg Q4H PRN PO 02/02/18 08:45 (Zofran Inj) 4 mg Q6H PRN IVP 02/02/18 08:45 02/02/18 17:23 (Compazine Supp) 25 mg Q12H PRN RECTAL 02/02/18 08:45 (Tylenol) 650 mg Q6H PRN PO 02/02/18 08:45 (Percocet 5-325 Mg) 1 tab Q6H PRN PO 02/02/18 08:45 (Percocet 10-325 Mg) 1 tab Q6H PRN PO 02/02/18 08:45 02/02/18 12:43 (Morphine Inj) 2 mg Q3H PRN IV PUSH 02/02/18 08:45 (Morphine Inj) 4 mg Q3H PRN IV PUSH 02/02/18 08:45 02/02/18 09:21 (Morphine Inj) 4 mg Q3H PRN IV PUSH 02/02/18 08:45 (Narcan Inj) 0.4 mg UNSCH PRN IV PUSH 02/02/18 08:45 ([place]-Colace) 1 tab BID PO 02/02/18 09:00 02/04/18 08:12 (Milk Of Magnesia Liq) 30 ml Q12H PRN PO 02/02/18 08:45 (Senokot) 17.2 mg Q12H PRN PO 02/02/18 08:45 (Dulcolax Supp) 10 mg DAILY PRN RECTAL 02/02/18 08:45 (Lactulose Liq) 30 ml DAILY PRN PO 02/02/18 08:45 (D50w (Vial) Inj) 50 ml UNSCH PRN IV PUSH 02/02/18 11:00 (Glucagon Inj) 1 mg UNSCH PRN OTHER 02/02/18 11:00 (NovoLOG SUPPLEMENTAL SCALE) 1 ACHS SLIDING SCALE SQ 02/02/18 12:00 02/04/18 08:11 Sodium Chloride 1,000 ml @ 0 mls/hr Q0M PRN OTHER 02/02/18 16:54 (Heparin Inj) 8,000 units UNSCH PRN IV FLUSH 02/02/18 17:00 Sodium Chloride 1,000 ml @ 200 mls/hr Q5H PRN IV 02/02/18 16:54 Sodium Chloride 1,000 ml @ 0 mls/hr Q0M PRN OTHER 02/02/18 16:54 (Mannitol Inj) 12.5 gm UNSCH PRN IV 02/02/18 17:00 Albumin Human 100 ml @ 60 mls/hr UNSCH PRN IV 02/02/18 17:00 (NS Flush) 5 ml UNSCH PRN IV FLUSH 02/02/18 17:00 (Heparin Inj) UNSCH PRN .XX 02/02/18 17:00 (Gentamicin Inj) 20 mg UNSCH PRN OTHER 02/02/18 17:00 (Zofran Inj) 4 mg UNSCH PRN IV PUSH 02/02/18 17:00 (Tylenol) 650 mg UNSCH PRN PO 02/02/18 17:00 (Benadryl) 25 mg UNSCH PRN PO 02/02/18 17:00 (Nitrostat Sl) 0.4 mg UNSCH PRN SL 02/02/18 17:00 (Catapres) 0.1 mg UNSCH PRN PO 02/02/18 17:00 (Epogen Inj) 10,000 units UNSCH PRN IV PUSH 02/02/18 17:00 (Gelfoam 12 Mm/7 Mm Top) 1 foam UNSCH PRN TOP 02/02/18 17:00 Heparin Sodium/ Dextrose 250 ml @ 10 mls/hr TITRATE PRN IV 02/02/18 20:00 02/03/18 21:48 (Trandate Inj) 20 mg Q15M PRN IV PUSH 02/02/18 21:00 02/02/18 22:15 (Apresoline Inj) 10 mg Q30M PRN IV PUSH 02/02/18 21:00 02/02/18 21:08 Nicardipine HCl 25 mg/Sodium Chloride 250 ml @ 50 mls/hr TITRATE PRN IV 02/03/18 00:30 02/04/18 11:08 (Aspirin Chew) 81 mg DAILY OG-TUBE 02/04/18 09:00 02/04/18 08:12 Piperacillin Sod/ Tazobactam Sod 50 ml @ 100 mls/hr Q8H IV 02/03/18 11:00 02/04/18 11:07 (Dilantin Inj) 200 mg Q12H IV 02/04/18 19:00 Allergies Allergies Coded Allergies codeine (Verified Allergy, Intermediate, 02/02/18) Exam I&O / VS Vital Signs Date Time Temp Pulse Resp B/P (MAP) Pulse Ox O2 Delivery O2 Flow Rate FiO2 02/04/18 11:08 71 137/63 02/04/18 08:13 97 60 02/04/18 06:30 70 147/70 02/04/18 06:00 70 02/04/18 04:25 99 60 02/04/18 04:00 60 02/04/18 04:00 69 02/04/18 04:00 99.0 69 17 141/67 (91) 99 02/04/18 02:00 69 02/04/18 02:00 69 123/59 02/04/18 01:16 92 60 02/04/18 00:00 65 18 136/63 (87) 98 02/04/18 00:00 60 02/04/18 00:00 65 02/03/18 22:00 64 02/03/18 20:17 99 60 02/03/18 20:00 60 02/03/18 20:00 98.8 64 17 132/61 (84) 97 02/03/18 20:00 73 02/03/18 19:58 65 128/56 02/03/18 19:00 98 Mechanical Ventilator 60 02/03/18 18:00 72 02/03/18 17:05 99 60 02/03/18 16:00 68 02/03/18 16:00 60 02/03/18 16:00 98.2 68 15 192/88 (122) 99 02/03/18 14:00 66 Objective Micro and Labs Laboratory Tests Test 02/03/18 12:30 02/03/18 20:26 02/04/18 03:04 02/04/18 04:36 Activated Partial Thromboplast Time 28.0 27.9 32.5 White Blood Count 8.7 Red Blood Count 2.88 Hemoglobin 8.6 Hematocrit 26.5 Mean Corpuscular Volume 92.2 Mean Corpuscular Hemoglobin 30.0 Mean Corpuscular Hemoglobin Concent 32.5 Red Cell Distribution Width 17.1 Platelet Count 228 Mean Platelet Volume 8.2 Blood Urea Nitrogen 30 Creatinine 5.59 Random Glucose 158 Calcium Level 8.9 Sodium Level 138 Potassium Level 4.0 Chloride Level 99 Carbon Dioxide Level 26.8 Anion Gap 12 Estimat Glomerular Filtration Rate 10 Test 02/04/18 08:21 Activated Partial Thromboplast Time 40.4 Date/Time Source Procedure Growth Status 02/03/18 15:58 Blood Peripheral Aerobic Blood Culture - Preliminary NO GROWTH IN 1 DAY Resulted 02/03/18 15:58 Blood Peripheral Anaerobic Blood Culture - Preliminary NO GROWTH IN 1 DAY Resulted 02/03/18 10:30 Sputum Endotracheal Gram Stain - Final Resulted 02/03/18 10:30 Sputum Endotracheal Sputum Culture Pending Resulted 02/03/18 10:30 Urine Catheterized Urine Urine Culture Pending Received Mirna Prasad MD Feb 04, 2018 12:30
--- NOTE | 2018-02-04 12:59 | HHI.NPPN ---
Subjective General Problems: Anemia, Hypertension Renal Failure: End Stage Renal Disease History of Present Illness 63-year-old gentleman with a past medical history of diabetes mellitus , Hypertension, coronary artery disease with history of CABG, and end stage renal disease on hemodialysis. Patient presented to emergency department by EMS after a fall from his seated walker while he was fishing landing on left side. Pelvis Xray is noted to have left femoral neck fracture. Nephrology was consulted for end stage renal disease and management of dialysis. Patient is followed by Dr. Beach and has dialysis on Tuesday, Tuesday, and Tuesday. Additional Remarks On ventilator. (Sofía Schofield) Review of Systems General General Remarks Intubated and sedated. (Sofía Schofield) Objective Data Data Vital Signs Date Time Temp Pulse Resp B/P (MAP) Pulse Ox O2 Delivery O2 Flow Rate FiO2 02/04/18 11:08 71 137/63 02/04/18 08:13 97 60 02/04/18 06:30 70 147/70 02/04/18 06:00 70 02/04/18 04:25 99 60 02/04/18 04:00 60 02/04/18 04:00 69 02/04/18 04:00 99.0 69 17 141/67 (91) 99 02/04/18 02:00 69 02/04/18 02:00 69 123/59 02/04/18 01:16 92 60 02/04/18 00:00 65 18 136/63 (87) 98 02/04/18 00:00 60 02/04/18 00:00 65 02/03/18 22:00 64 02/03/18 20:17 99 60 02/03/18 20:00 60 02/03/18 20:00 98.8 64 17 132/61 (84) 97 02/03/18 20:00 73 02/03/18 19:58 65 128/56 02/03/18 19:00 98 Mechanical Ventilator 60 02/03/18 18:00 72 02/03/18 17:05 99 60 02/03/18 16:00 68 02/03/18 16:00 60 02/03/18 16:00 98.2 68 15 192/88 (122) 99 02/03/18 14:00 66 (Sofía Schofield) -: 02/04/18 0436 02/04/18 0436 Microbiology 02/03/18 Aerobic Blood Culture - Preliminary, Resulted NO GROWTH IN 1 DAY 02/03/18 Anaerobic Blood Culture - Preliminary, Resulted NO GROWTH IN 1 DAY 02/03/18 Aerobic Blood Culture - Preliminary, Resulted NO GROWTH IN 1 DAY 02/03/18 Anaerobic Blood Culture - Preliminary, Resulted NO GROWTH IN 1 DAY Tubes & Lines: [place] (Sofía Schofield) Physical Exam Eyes Eye Exam: Pupils Equal (Sofía Schofield) Ears & Nose Ears & Nose Exam: Tympanic Membranes Normal (Sofía Schofield) Throat Throat Exam: Oral Mucosa [place] & Moist (Sofía Schofield) Neck Neck Exam: Neck Supple (Sofía Schofield) Pulmonary Resp Exam: Breath Sounds Equal, Rhonchi, Decreased Bases, Diminished Breath Sounds, Poor Inspiratory Effort (Sofía Schofield) Cardiology CV Exam: Regular, Normal Sinus Rhythm (Sofía Schofield) Gastrointestinal/Abdomen GI Exam: Soft, Non-Tender, Bowel Sounds Present (Sofía Schofield) Extremeties Extremities Exam: Moderate Edema (Sofía Schofield) Neurologic Neuro Exam: Unresponsive (Sofía Schofield) Assessment/Plan Problem List: (1) End stage renal disease ICD Codes: N18.6 - End stage renal disease Status: Acute Plan: End stage renal disease on hemodialysis on Tuesday, Tuesday, and Tuesday. AVF in left arm with positive thrill and bruit Epogen with dialysis for anemia. Hemodialysis yesterday with UF of 2.5 liters Family has made him No Code. Neurology following repeat EEG tomorrow. (2) Hypertension ICD Codes: I10 - Essential (primary) hypertension Plan: continue home medications and monitor (3) Hip fracture ICD Codes: S72.009A - Fracture of unspecified part of neck of unspecified femur , initial encounter for closed fracture Status: Acute Plan: Ortho consulted (4) Diabetes ICD Codes: E11.9 - Type 2 diabetes mellitus without complications Plan: Maintain blood sugars between 140- 180 mg/dl (5) Anemia ICD Codes: D64.9 - Anemia, unspecified Plan: Epogen with dialysis (Sofía Schofield) Problem List: (1) End stage renal disease ICD Codes: N18.6 - End stage renal disease Status: Acute Plan: End stage renal disease on hemodialysis on Tuesday, Tuesday, and Tuesday. AVF in left arm with positive thrill and bruit Epogen with dialysis for anemia. Hemodialysis yesterday with UF of 2.5 liters Family has made him No Code. Neurology following repeat EEG tomorrow. Patient seen and examined, agree with above. D/W the family, awaiting neurology follow up and will consider possible with drawl of the treatment. (2) Hypertension ICD Codes: I10 - Essential (primary) hypertension Plan: continue home medications and monitor (3) Hip fracture ICD Codes: S72.009A - Fracture of unspecified part of neck of unspecified femur , initial encounter for closed fracture Status: Acute Plan: Ortho consulted (4) Diabetes ICD Codes: E11.9 - Type 2 diabetes mellitus without complications Plan: Maintain blood sugars between 140- 180 mg/dl (5) Anemia ICD Codes: D64.9 - Anemia, unspecified Plan: Epogen with dialysis (Romulo Nascimento MD) Problem Qualifiers (1) Hip fracture: Qualified Codes: S72.002A - Fracture of unspecified part of neck of left femur , initial encounter for closed fracture Sofía Schofield Feb 04, 2018 12:59 Romulo Nascimento MD Feb 05, 2018 14:32
--- NOTE | 2018-02-04 13:37 | PD.CARD.PN ---
Subjective Subjective Remarks obtunded Objective Medications Current Medications Medications (Trade) Dose Ordered Sig/Angela Route Start Time Stop Time Status Last Admin (NS Flush) 2 ml UNSCH PRN IV FLUSH 02/02/18 07:00 (NS Flush) 2 ml BID IV FLUSH 02/02/18 09:00 02/04/18 08:12 (Tylenol) 650 mg Q4H PRN PO 02/02/18 08:45 (Zofran Inj) 4 mg Q6H PRN IVP 02/02/18 08:45 02/02/18 17:23 (Compazine Supp) 25 mg Q12H PRN RECTAL 02/02/18 08:45 (Tylenol) 650 mg Q6H PRN PO 02/02/18 08:45 (Percocet 5-325 Mg) 1 tab Q6H PRN PO 02/02/18 08:45 (Percocet 10-325 Mg) 1 tab Q6H PRN PO 02/02/18 08:45 02/02/18 12:43 (Morphine Inj) 2 mg Q3H PRN IV PUSH 02/02/18 08:45 (Morphine Inj) 4 mg Q3H PRN IV PUSH 02/02/18 08:45 02/02/18 09:21 (Morphine Inj) 4 mg Q3H PRN IV PUSH 02/02/18 08:45 (Narcan Inj) 0.4 mg UNSCH PRN IV PUSH 02/02/18 08:45 ([place]-Colace) 1 tab BID PO 02/02/18 09:00 02/04/18 08:12 (Milk Of Magnesia Liq) 30 ml Q12H PRN PO 02/02/18 08:45 (Senokot) 17.2 mg Q12H PRN PO 02/02/18 08:45 (Dulcolax Supp) 10 mg DAILY PRN RECTAL 02/02/18 08:45 (Lactulose Liq) 30 ml DAILY PRN PO 02/02/18 08:45 (D50w (Vial) Inj) 50 ml UNSCH PRN IV PUSH 02/02/18 11:00 (Glucagon Inj) 1 mg UNSCH PRN OTHER 02/02/18 11:00 (NovoLOG SUPPLEMENTAL SCALE) 1 ACHS SLIDING SCALE SQ 02/02/18 12:00 02/04/18 12:28 Sodium Chloride 1,000 ml @ 0 mls/hr Q0M PRN OTHER 02/02/18 16:54 (Heparin Inj) 8,000 units UNSCH PRN IV FLUSH 02/02/18 17:00 Sodium Chloride 1,000 ml @ 200 mls/hr Q5H PRN IV 02/02/18 16:54 Sodium Chloride 1,000 ml @ 0 mls/hr Q0M PRN OTHER 02/02/18 16:54 (Mannitol Inj) 12.5 gm UNSCH PRN IV 02/02/18 17:00 Albumin Human 100 ml @ 60 mls/hr UNSCH PRN IV 02/02/18 17:00 (NS Flush) 5 ml UNSCH PRN IV FLUSH 02/02/18 17:00 (Heparin Inj) UNSCH PRN .XX 02/02/18 17:00 (Gentamicin Inj) 20 mg UNSCH PRN OTHER 02/02/18 17:00 (Zofran Inj) 4 mg UNSCH PRN IV PUSH 02/02/18 17:00 (Tylenol) 650 mg UNSCH PRN PO 02/02/18 17:00 (Benadryl) 25 mg UNSCH PRN PO 02/02/18 17:00 (Nitrostat Sl) 0.4 mg UNSCH PRN SL 02/02/18 17:00 (Catapres) 0.1 mg UNSCH PRN PO 02/02/18 17:00 (Epogen Inj) 10,000 units UNSCH PRN IV PUSH 02/02/18 17:00 (Gelfoam 12 Mm/7 Mm Top) 1 foam UNSCH PRN TOP 02/02/18 17:00 Heparin Sodium/ Dextrose 250 ml @ 10 mls/hr TITRATE PRN IV 02/02/18 20:00 02/03/18 21:48 (Trandate Inj) 20 mg Q15M PRN IV PUSH 02/02/18 21:00 02/02/18 22:15 (Apresoline Inj) 10 mg Q30M PRN IV PUSH 02/02/18 21:00 02/02/18 21:08 Nicardipine HCl 25 mg/Sodium Chloride 250 ml @ 50 mls/hr TITRATE PRN IV 02/03/18 00:30 02/04/18 11:08 (Aspirin Chew) 81 mg DAILY OG-TUBE 02/04/18 09:00 02/04/18 08:12 Piperacillin Sod/ Tazobactam Sod 50 ml @ 100 mls/hr Q8H IV 02/03/18 11:00 02/04/18 11:07 (Dilantin Inj) 200 mg Q12H IV 02/04/18 19:00 Vital Signs / I&O Vital Signs Date Time Temp Pulse Resp B/P (MAP) Pulse Ox O2 Delivery O2 Flow Rate FiO2 02/04/18 12:00 61 02/04/18 12:00 98.2 62 12 115/56 (75) 97 02/04/18 12:00 60 02/04/18 11:08 71 137/63 02/04/18 10:00 74 02/04/18 08:13 97 60 02/04/18 08:00 60 02/04/18 08:00 99.5 68 12 129/61 (83) 100 02/04/18 08:00 68 02/04/18 07:00 100 Mechanical Ventilator 60 02/04/18 06:30 70 147/70 02/04/18 06:00 70 02/04/18 04:25 99 60 02/04/18 04:00 60 02/04/18 04:00 69 02/04/18 04:00 99.0 69 17 141/67 (91) 99 02/04/18 02:00 69 02/04/18 02:00 69 123/59 02/04/18 01:16 92 60 02/04/18 00:00 65 18 136/63 (87) 98 02/04/18 00:00 60 02/04/18 00:00 65 02/03/18 22:00 64 02/03/18 20:17 99 60 02/03/18 20:00 60 02/03/18 20:00 98.8 64 17 132/61 (84) 97 02/03/18 20:00 73 02/03/18 19:58 65 128/56 02/03/18 19:00 98 Mechanical Ventilator 60 02/03/18 18:00 72 02/03/18 17:05 99 60 02/03/18 16:00 68 02/03/18 16:00 60 02/03/18 16:00 98.2 68 15 192/88 (122) 99 02/03/18 14:00 66 I/O 02/03/18 02/03/18 02/03/18 02/04/18 02/04/18 02/04/18 07:00 15:00 23:00 07:00 15:00 23:00 Intake Total 158.6 ml 550 ml 664 ml Output Total 350 ml 50 ml 0 ml Balance -191.4 ml 500 ml 664 ml Intake Oral 0 ml IV Total 158.6 ml 550 ml 664 ml Output Urine Total 0 ml 0 ml 0 ml Gastric Drainage Total 350 ml 50 ml 0 ml # Bowel Movements 0 Physical Exam on vent unresponsive chest clear anteriorly CV S1S2 RRR with 2/6 NADINE No edeam Laboratory Laboratory Tests Test 02/03/18 20:26 02/04/18 03:04 02/04/18 04:36 02/04/18 08:21 Activated Partial Thromboplast Time 27.9 SEC 32.5 SEC 40.4 SEC White Blood Count 8.7 TH/MM3 Red Blood Count 2.88 MIL/MM3 Hemoglobin 8.6 GM/DL Hematocrit 26.5 % Mean Corpuscular Volume 92.2 FL Mean Corpuscular Hemoglobin 30.0 PG Mean Corpuscular Hemoglobin Concent 32.5 % Red Cell Distribution Width 17.1 % Platelet Count 228 TH/MM3 Mean Platelet Volume 8.2 FL Blood Urea Nitrogen 30 MG/DL Creatinine 5.59 MG/DL Random Glucose 158 MG/DL Calcium Level 8.9 MG/DL Sodium Level 138 MEQ/L Potassium Level 4.0 MEQ/L Chloride Level 99 MEQ/L Carbon Dioxide Level 26.8 MEQ/L Anion Gap 12 MEQ/L Estimat Glomerular Filtration Rate 10 ML/MIN Assessment and Plan Problem List: (1) Elevated troponin ICD Codes: R74.8 - Abnormal levels of other serum enzymes Plan: Poss NSTEMI. Conservative therapy unless he wakes up. (2) Anoxic encephalopathy ICD Codes: G93.1 - Anoxic brain damage, not elsewhere classified Salvatore Gracia MD Feb 04, 2018 13:37
[2018-02-04] MEDS: hydrALAZINE HCL 20 MG/ML VIAL IV PUSH PRN ×2 (16:39→21:29)
--- NOTE | 2018-02-04 18:03 | HHI.CCPN ---
Subjective Remarks/Hospital Course 02/02: This is a 63yM with history of ESRD on IHD who presented 02/01 with left femoral neck fracture, admitted for work-up and possible operative fixation. He was found unresponsive in PEA arrest on the floor. ACLS ensued. ROSC was obtained. Dr. Pat met the patient upon arrival to the ICU. Patient is unresponsive and no additional information is available from the patient. ROS unobtainable. 02/03: Remains comatose, orally intubated on mechanical ventilation, not on any sedation. On nicardipine drip for hypertension. Suspect severe anoxic brain injury. Chest x-ray postintubation reveals right lower lobe infiltrate raising suspicion for aspiration. Awaiting EEG. 02/04: Remains unresponsive and ventilator dependent. No analgesia or sedation. Electrolytes acceptable. Arrangements being made to continue hemodialysis. Objective Vital Signs Date Time Temp Pulse Resp B/P (MAP) Pulse Ox O2 Delivery O2 Flow Rate FiO2 02/04/18 16:33 100 50 02/04/18 12:00 61 02/04/18 12:00 98.2 12 115/56 (75) 02/04/18 07:00 Mechanical Ventilator 02/02/18 18:30 15.00 Intake and Output 02/04/18 02/04/18 02/05/18 08:00 16:00 00:00 Intake Total 664 ml Output Total 0 ml Balance 664 ml Result Diagram: 02/04/18 0436 02/04/18 0436 Imaging Last Impressions Pelvis X-Ray 02/01/18 0000 Signed Impressions: Service Date/Time: Thursday, February 01, 2018 20:50 - CONCLUSION: Left femoral neck fracture Tavares Baker MD Femur X-Ray 02/01/18 0000 Signed Impressions: Service Date/Time: Thursday, February 01, 2018 20:52 - CONCLUSION: Left femoral neck fracture Tavares Baker MD Chest X-Ray 02/01/18 0000 Signed Impressions: Service Date/Time: Thursday, February 01, 2018 21:23 - CONCLUSION: Mild right base infiltrate or contusion and possible small effusion. Tavares Baker MD Objective Remarks gen: middle-aged male, lying in bed, unresponsive. heent: nc. at. pupils are 3mm, disconjugate gaze. equal, sluggish but reactive. mucous membranes moist. neck: no jvd. trachea midline. Orally intubated chest: Mechanical ventilation, on prvc 50% fio2. breathes over the vent. equal chest rise, few mobile secretions. cv: normal rate, regular rhythm. sinus. Neck veins are full, not distended abd: soft, nontender, nondistended. no guarding. Bowel sounds few. extr: evidence of left BKA. extremities are tepid, marginally perfused. left forearm dialysis fistula with palpable thrill. neuro: GCS 3. negative cough. negative gag. negative corneals. Still breaths over vent. EKG: prelim interpretation: NSR with LVH. no st-t-wave abnormalities. Bedside Critical Care Echocardiography 02/02 post code: grossly preserved biventricular function. some evidence of RV pressure overload with RVSP estimated in the 60s. IVC dilated without respiratory variation. no pericardial effusion. A/P Assessment and Plan Assessment: 63yM with ESRD and new left femoral neck fracture found in PEA arrest. critically ill. work-up and laboratory assessment underway. differential includes [place], PE, fat embolism, electrolyte abnormality, respiratory arrest from narcotic pain medication. Active Problems: Hypoxic Ischemic Encephalopathy Acute hypoxic and hypercarbic respiratory failure s/p PEA arrest Acute anion gap metabolic acidosis ESRD on IHD left femoral neck fracture Plan: - frequent neuro checks - Not on any sedation, remains comatose raising concern for anoxic brain injury - CT brain negative for bleed. - vent bundle, hob elevated, nebs - wean fio2 for goal spo2 > 90% - no weaning of mechanical ventilation until neuro exam improves - VQ scan (ESRD) read as low probability for PE - Callahan cultures and initiate empiric Zosyn for suspected aspiration. -Elevated troponin with history of CAD with prior CABG. On heparin GTT. Start aspirin. Cardiology consult requested in view of possible N STEMI with cardiac arrest. -Nicardipine gtt. to control blood pressure. -On heparin for anticoagulation. Started aspirin in view of elevated troponin. - nephrology following for hemodialysis -Orthopedics following for left femoral neck fracture. Not cleared for surgery at this time. - hold on any operative intervention until more critical issues have been addressed. -Consult neurology for further evaluation of encephalopathy which is most likely secondary to severe anoxic brain injury. Consult palliative care to assist with deciding goals of therapy as prognosis appears poor secondary to comatose state following cardiac arrest not requiring any sedation. -Probable urinary tract infection is covered with Zosyn. Await speciation. Overall impression: This gentleman is critically ill following a cardiac arrest and resuscitation from a PEA rhythm. He appears to have sustained a devastating neurologic injury which will be further analyzed during ongoing evaluation. Prognosis is poor. He remains unstable. Critical care 48 minutes aside from procedures. Pepito Pérez MD Feb 04, 2018 18:03
[2018-02-04] MEDS: PHENYTOIN INJ 100 MG/2 ML VIAL IV SCH (18:29)
[2018-02-04] MEDS: HEPARIN-D5W 25,000 U/250 ML 250 ML IV PRN (18:31)
--- NOTE | 2018-02-04 19:58 | PD.ORT.PN ---
Subjective Subjective Remarks Intubated. Objective Vitals Vital Signs Date Time Temp Pulse Resp B/P (MAP) Pulse Ox O2 Delivery O2 Flow Rate FiO2 02/04/18 19:47 96 50 02/04/18 18:00 65 02/04/18 16:33 100 50 02/04/18 16:00 66 02/04/18 16:00 60 02/04/18 16:00 98.2 66 12 160/78 (105) 100 02/04/18 14:35 97 55 02/04/18 14:00 62 02/04/18 12:00 61 02/04/18 12:00 98.2 62 12 115/56 (75) 97 02/04/18 12:00 60 02/04/18 11:08 71 137/63 02/04/18 10:00 74 02/04/18 08:13 97 60 02/04/18 08:00 60 02/04/18 08:00 99.5 68 12 129/61 (83) 100 02/04/18 08:00 68 02/04/18 07:00 100 Mechanical Ventilator 60 02/04/18 06:30 70 147/70 02/04/18 06:00 70 02/04/18 04:25 99 60 02/04/18 04:00 60 02/04/18 04:00 69 02/04/18 04:00 99.0 69 17 141/67 (91) 99 02/04/18 02:00 69 02/04/18 02:00 69 123/59 02/04/18 01:16 92 60 02/04/18 00:00 65 18 136/63 (87) 98 02/04/18 00:00 60 02/04/18 00:00 65 02/03/18 22:00 64 02/03/18 20:17 99 60 02/03/18 20:00 60 02/03/18 20:00 98.8 64 17 132/61 (84) 97 02/03/18 20:00 73 02/03/18 19:58 65 128/56 I/O 02/03/18 02/03/18 02/03/18 02/04/18 02/04/18 02/04/18 07:00 15:00 23:00 07:00 15:00 23:00 Intake Total 158.6 ml 550 ml 664 ml Output Total 350 ml 50 ml 0 ml 0 ml Balance -191.4 ml 500 ml 664 ml 0 ml Intake Oral 0 ml IV Total 158.6 ml 550 ml 664 ml Output Urine Total 0 ml 0 ml 0 ml 0 ml Gastric Drainage Total 350 ml 50 ml 0 ml 0 ml # Bowel Movements 0 Result Diagram: 02/04/1843502/04/18435 Assessment & Plan Assessment and Plan 63yM with ESRD and new left femoral neck fracture found in PEA arrest. critically ill. differential includes [place], PE, fat embolism, electrolyte abnormality, respiratory arrest from narcotic pain medication. Dr. George will follow along and reassess when medically cleared Ammon Donohue Jr., MD Feb 04, 2018 19:58
[2018-02-04] MEDS: LABETALOL HCL 100 MG/20 ML VIAL IV PUSH PRN (21:59)
[2018-02-05] VITALS (10 sets, daily range): BP systolic 120–189; BP diastolic 39–86; PULSE 60–76; RESP 16–17; TEMP 98.7–98.9; O2SAT 96–100
[2018-02-05] MEDS: hydrALAZINE HCL 20 MG/ML VIAL IV PUSH PRN ×2 (01:40→07:55)
[2018-02-05] MEDS: PIPERACIL-TAZO 2.25 GM PREMIX 50 ML IV SCH ×2 (02:37→11:00)
[2018-02-05] MEDS: LABETALOL HCL 100 MG/20 ML VIAL IV PUSH PRN (04:42)
[2018-02-05 05:43] LABS: HEMATOCRIT 25.8 % (39.0-51.0); HEMOGLOBIN 8.6 GM/DL (13.0-17.0); MEAN CELL VOLUME 93.3 FL (80.0-100.0); MEAN CORPUSCULAR HEMOGLOBIN 31.1 PG (27.0-34.0); MEAN CORPUSCULAR HGB CONC 33.3 % (32.0-36.0); MEAN PLATELET VOLUME 7.8 FL (7.0-11.0); PLATELET COUNT 215 TH/MM3 (150-450); RED BLOOD COUNT 2.77 MIL/MM3 (4.50-5.90); RED CELL DISTRIBUTION WIDTH 17.6 % (11.6-17.2); WHITE BLOOD COUNT 7.9 TH/MM3 (4.0-11.0)
[2018-02-05 06:23] LABS: BICARBONATE 24.9 MEQ/L (21.0-32.0); CALCIUM 8.2 MG/DL (8.5-10.1); CREATININE 6.49 MG/DL (0.60-1.30)
--- NOTE | 2018-02-05 07:13 | HHI.CCPN ---
Subjective Remarks/Hospital Course 02/02: This is a 63yM with history of ESRD on IHD who presented 02/01 with left femoral neck fracture, admitted for work-up and possible operative fixation. He was found unresponsive in PEA arrest on the floor. ACLS ensued. ROSC was obtained. Dr. Pat met the patient upon arrival to the ICU. Patient is unresponsive and no additional information is available from the patient. ROS unobtainable. 02/03: Remains comatose, orally intubated on mechanical ventilation, not on any sedation. On nicardipine drip for hypertension. Suspect severe anoxic brain injury. Chest x-ray postintubation reveals right lower lobe infiltrate raising suspicion for aspiration. Awaiting EEG. 02/04: Remains unresponsive and ventilator dependent. No analgesia or sedation. Electrolytes acceptable. Arrangements being made to continue hemodialysis. 02/05: Remains in coma, no sedation or analgesia. Remains ventilator dependent and respiratory failure. Continues to have episodes of apnea during spontaneous breathing trials.Three daughters have expressed to me their strong belief that he would not want to live like this. There are 4 children total. He has sustained a devastating neurological injury and is failing spontaneous breathing trials due to apnea spells. He will not recover enough significant function to lead a meaningful existence according to his children's description of what is important to him. They are all quite clear about his wishes. Objective Vital Signs Date Time Temp Pulse Resp B/P (MAP) Pulse Ox O2 Delivery O2 Flow Rate FiO2 02/05/18 06:00 64 02/05/18 04:00 98.9 17 161/78 (105) 96 02/05/18 04:00 40 02/04/18 19:00 Mechanical Ventilator 02/02/18 18:30 15.00 Intake and Output 02/05/18 02/05/18 02/06/18 08:00 16:00 00:00 Intake Total 50 ml Output Total 100 ml Balance -50 ml Result Diagram: 02/05/18 0521 02/05/18 0521 Imaging Last Impressions Pelvis X-Ray 02/01/18 0000 Signed Impressions: Service Date/Time: Thursday, February 01, 2018 20:50 - CONCLUSION: Left femoral neck fracture Tavares Baker MD Femur X-Ray 02/01/18 0000 Signed Impressions: Service Date/Time: Thursday, February 01, 2018 20:52 - CONCLUSION: Left femoral neck fracture Tavares Baker MD Chest X-Ray 02/01/18 0000 Signed Impressions: Service Date/Time: Thursday, February 01, 2018 21:23 - CONCLUSION: Mild right base infiltrate or contusion and possible small effusion. Tavares Baker MD Objective Remarks gen: middle-aged male, lying in bed, unresponsive. heent: nc. at. pupils are 3mm, disconjugate gaze. equal, sluggish but reactive. neck: no jvd. trachea midline. Orally intubated chest: Mechanical ventilation, on prvc 40% fio2. breathes over the vent intermittently. equal chest rise, few mobile secretions. cv: normal rate, regular rhythm. sinus. Neck veins are full, not distended abd: soft, nontender, nondistended. no guarding. Bowel sounds few. extr: evidence of left BKA. extremities are tepid, marginally perfused. left forearm dialysis fistula with palpable thrill. neuro: GCS 3. negative cough. negative gag. negative corneal reflexes. Still breaths over vent, but inconsistently. Frequent apnea spells. EKG: prelim interpretation: NSR with LVH. no st-t-wave abnormalities. Bedside Critical Care Echocardiography 02/02 post code: grossly preserved biventricular function. some evidence of RV pressure overload with RVSP estimated in the 60s. IVC dilated without respiratory variation. no pericardial effusion. A/P Assessment and Plan Assessment: 63yM with ESRD and new left femoral neck fracture found in PEA arrest. critically ill. work-up and laboratory assessment underway. differential includes [place], PE, fat embolism, electrolyte abnormality, respiratory arrest from narcotic pain medication. Active Problems: Hypoxic Ischemic Encephalopathy Acute hypoxic and hypercarbic respiratory failure s/p PEA arrest Acute anion gap metabolic acidosis ESRD on IHD left femoral neck fracture Diabetes mellitus Plan: - frequent neuro checks - Not on any sedation, remains comatose raising concern for anoxic brain injury - CT brain negative for bleed. - vent bundle, hob elevated, nebs - wean fio2 for goal spo2 > 90% - no weaning of mechanical ventilation until neuro exam improves - VQ scan (ESRD) read as low probability for PE - Callahan cultures and initiate empiric Zosyn for suspected aspiration. -Elevated troponin with history of CAD with prior CABG. On heparin GTT. Start aspirin. Cardiology consult requested in view of possible N STEMI with cardiac arrest. -Nicardipine gtt. to control blood pressure. -On heparin for anticoagulation. Started aspirin in view of elevated troponin. - nephrology following for hemodialysis -Orthopedics following for left femoral neck fracture. Not cleared for surgery at this time. - hold on any operative intervention until more critical issues have been addressed. -Consult neurology for further evaluation of encephalopathy which is most likely secondary to severe anoxic brain injury. Consult palliative care to assist with deciding goals of therapy as prognosis appears poor secondary to comatose state following cardiac arrest not requiring any sedation. -Probable urinary tract infection is covered with Zosyn. Adjust pending speciation. -Start Glucerna 1.5 and initiate Levemir twice daily coverage at 12 units Overall impression: This gentleman is critically ill following a cardiac arrest and resuscitation from a PEA rhythm. He appears to have sustained a devastating neurologic injury which will be further analyzed during ongoing evaluation. Prognosis is poor. He remains unstable and unlikely to survive this illness. There are 3 daughters who have visited to the bedside. They understand that their father is critically ill and has sustained a devastating neurological injury. They appear to comprehend well that he will not recover significant neurological function after this cardiac arrest and have made him full DNR/ comfort measures. They wish to withdraw artificial support and allow for a natural . Critical care 40 minutes aside from procedures. Pepito Pérez MD Feb 05, 2018 07:13
[2018-02-05] MEDS: PHENYTOIN INJ 100 MG/2 ML VIAL IV SCH (07:42)
[2018-02-05] MEDS: INSULIN ASPART SUPPLEMENTAL SCALE SQ SCH ×2 (07:42→12:00)
[2018-02-05] MEDS: HEPARIN-D5W 25,000 U/250 ML 250 ML IV PRN (07:57)
[2018-02-05] MEDS: DOCUSATE SODIUM 50 MG/SENNA 8.6 MG TAB PO SCH (08:14)
[2018-02-05] MEDS: SODIUM CHLORIDE 0.9% FLUSH 10 ML FLUSH IV FLUSH SCH (08:15)
[2018-02-05] MEDS: ASPIRIN 81 MG CHEW TAB OG-TUBE SCH (08:15)
[2018-02-05] MEDS ORDERED: INSULIN DETEMIR 100 UNITS/ML VIAL SQ SCH (09:00)
[2018-02-05] MEDS ORDERED: ISOSORBIDE DINITRATE 10 MG TAB PO SCH (09:00)
[2018-02-05] MEDS ORDERED: LISINOPRIL 20 MG TAB PO SCH (09:00)
[2018-02-05] MEDS ORDERED: HYDROmorphone HCL PF 2 MG/ML VIAL IV PUSH PRN (10:15)
[2018-02-05] MEDS ORDERED: LORazepam 2 MG/ML VIAL IV PUSH PRN (10:15)
[2018-02-05] MEDS ORDERED: HYOSCYAMINE 0.5 MG/ML AMP IV PUSH PRN (10:30)
[2018-02-05] MEDS ORDERED: LORazepam 2 MG/ML VIAL IV PUSH ONE (11:00)
[2018-02-05] MEDS ORDERED: HYDROmorphone HCL PF 4 MG/ML VIAL IV PUSH ONE (11:00)
--- NOTE | 2018-02-05 11:27 | HHI.CCPN ---
Subjective Remarks/Hospital Course 02/02: This is a 63yM with history of ESRD on IHD who presented 02/01 with left femoral neck fracture, admitted for work-up and possible operative fixation. He was found unresponsive in PEA arrest on the floor. ACLS ensued. ROSC was obtained. Dr. Pat met the patient upon arrival to the ICU. Patient is unresponsive and no additional information is available from the patient. ROS unobtainable. 02/03: Remains comatose, orally intubated on mechanical ventilation, not on any sedation. On nicardipine drip for hypertension. Suspect severe anoxic brain injury. Chest x-ray postintubation reveals right lower lobe infiltrate raising suspicion for aspiration. Awaiting EEG. 02/04: Remains unresponsive and ventilator dependent. No analgesia or sedation. Electrolytes acceptable. Arrangements being made to continue hemodialysis. 02/05: Dr. Pérez: Remains in coma, no sedation or analgesia. Remains ventilator dependent and respiratory failure. Continues to have episodes of apnea during spontaneous breathing trials.Three daughters have expressed to me their strong belief that he would not want to live like this. There are 4 children total. He has sustained a devastating neurological injury and is failing spontaneous breathing trials due to apnea spells. He will not recover enough significant function to lead a meaningful existence according to his children's description of what is important to him. They are all quite clear about his wishes. 02/05 Asked to evaluate patient in terms of assessment of end stage condition. He had PEA cardiac arrest. He has not been on continuous sedation but remains comatose with evidence of anoxic injury. EEG from 02/03 showed burst suppression. He is comatose, has been apneic during attempts at CPAP trial today. Objective Vital Signs Date Time Temp Pulse Resp B/P (MAP) Pulse Ox O2 Delivery O2 Flow Rate FiO2 02/05/18 08:17 100 40 02/05/18 08:00 Mechanical Ventilator 02/05/18 08:00 98.8 60 16 144/69 (94) 02/02/18 18:30 15.00 Intake and Output 02/05/18 02/05/18 02/06/18 08:00 16:00 00:00 Intake Total 50 ml Output Total 100 ml Balance -50 ml Result Diagram: 02/05/18 0521 02/05/18 0521 Other Results Microbiology Date/Time Source Procedure Growth Status 02/03/18 10:30 Urine Catheterized Urine Urine Culture - Final Citrobacter Koseri Complete Imaging Last Impressions Pelvis X-Ray 02/01/18 0000 Signed Impressions: Service Date/Time: Thursday, February 01, 2018 20:50 - CONCLUSION: Left femoral neck fracture Tavares Baker MD Femur X-Ray 02/01/18 0000 Signed Impressions: Service Date/Time: Thursday, February 01, 2018 20:52 - CONCLUSION: Left femoral neck fracture Tavares Baker MD Chest X-Ray 02/01/18 0000 Signed Impressions: Service Date/Time: Thursday, February 01, 2018 21:23 - CONCLUSION: Mild right base infiltrate or contusion and possible small effusion. Tavares Baker MD Objective Remarks gen: middle-aged male, lying in bed, unresponsive on mechanical ventilation. heent: Pupils are 3 mm bilaterally and sluggishly reactive. Gaze appears disconjugate with vertical nystagmus. neck: no jvd. trachea midline. Orally intubated RESP: On mechanical ventilation. Occasional rhonchi. cv: normal rate, regular rhythm. sinus. Neck veins are full, not distended abd: soft, nontender, nondistended. no guarding. Bowel sounds hypoactive. extr: evidence of left BKA. extremities are tepid, marginally perfused. left forearm dialysis fistula with palpable thrill. neuro: No eye opening to deep noxious stimuli. Pupils as per above. Nystagmus as per above. Does not track. Positive cough. Slight withdrawal bilateral upper extremities with deep central noxious stimuli. Does not localize. A/P Assessment and Plan Assessment: 63yM with ESRD and new left femoral neck fracture found in PEA arrest. critically ill. work-up and laboratory assessment underway. differential includes DE, PE, fat embolism, electrolyte abnormality, respiratory arrest from narcotic pain medication. Active Problems: Hypoxic Ischemic Encephalopathy Acute hypoxic and hypercarbic respiratory failure s/p PEA arrest Acute anion gap metabolic acidosis ESRD on IHD left femoral neck fracture Diabetes mellitus Plan: Patient has multiple comorbidities including ESRD on hemodialysis, diabetes, PAD with left BKA.. He has sustained left femoral neck fracture and subsequent PEA cardiac arrest and subsequent anoxic encephalopathy. He has biventricular failure. He has multiple end-stage conditions. Dr. Pérez has spoken with patient's family and they feel he would desire transition to comfort care. Edith David MD Feb 05, 2018 11:27
--- NOTE | 2018-02-05 13:45 | PD.ORT.PN ---
Objective Vitals Vital Signs Date Time Temp Pulse Resp B/P (MAP) Pulse Ox O2 Delivery O2 Flow Rate FiO2 02/05/18 12:00 98.7 74 16 189/86 (120) 99 02/05/18 12:00 74 02/05/18 12:00 40 02/05/18 10:00 64 02/05/18 08:17 100 40 02/05/18 08:17 40 02/05/18 08:00 60 02/05/18 08:00 100 Mechanical Ventilator 40 02/05/18 08:00 98.8 60 16 144/69 (94) 100 02/05/18 08:00 62 02/05/18 06:15 40 02/05/18 06:00 64 02/05/18 04:00 98.9 76 17 161/78 (105) 96 02/05/18 04:00 40 02/05/18 04:00 76 02/05/18 03:46 97 40 02/05/18 02:00 67 02/05/18 00:57 40 02/05/18 00:54 100 40 02/05/18 00:00 50 02/05/18 00:00 60 02/05/18 00:00 98.8 60 16 120/39 (66) 98 02/04/18 22:00 71 02/04/18 20:00 50 02/04/18 20:00 68 02/04/18 20:00 99.5 68 19 163/78 (106) 99 02/04/18 19:47 96 50 02/04/18 19:27 78 169/79 02/04/18 19:00 99 Mechanical Ventilator 50 02/04/18 18:00 65 02/04/18 16:33 100 50 02/04/18 16:00 66 02/04/18 16:00 60 02/04/18 16:00 98.2 66 12 160/78 (105) 100 02/04/18 14:35 97 55 02/04/18 14:00 62 I/O 02/04/18 02/04/18 02/04/18 02/05/18 02/05/18 02/05/18 07:00 15:00 23:00 07:00 15:00 23:00 Intake Total 664 ml 170 ml 50 ml Output Total 0 ml 0 ml 100 ml Balance 664 ml 170 ml -50 ml IV Total 664 ml 170 ml 50 ml Output Urine Total 0 ml 0 ml 0 ml Gastric Drainage Total 0 ml 0 ml 100 ml Result Diagram: 02/05/18 0521 02/05/18520 Assessment & Plan Assessment and Plan 63yM with ESRD and new left femoral neck fracture found in PEA arrest. critically ill. differential includes UT, PE, fat embolism, electrolyte abnormality, respiratory arrest. Dr. Pérez has spoken with patient's family. Transition to comfort care. Ammon Donohue Jr., MD Feb 05, 2018 13:45
--- NOTE | 2018-02-05 18:20 | HHI.DS ---
Discharge Summary Admission Date Feb 01, 2018 at 21:16 Discharge Date: Feb 05, 2018 Admitting Diagnosis Fall, hip fracture (1) Cardiac arrest ICD Code: I46.9 - Cardiac arrest, cause unspecified Diagnosis: Principal Status: Acute (2) Acute respiratory failure with hypoxia and hypercarbia ICD Code: J96.01 - Acute respiratory failure with hypoxia; J96.02 - Acute respiratory failure with hypercapnia Diagnosis: Principal Status: Acute (3) Anoxic encephalopathy ICD Code: G93.1 - Anoxic brain damage, not elsewhere classified Diagnosis: Principal Status: Acute (4) Anemia ICD Code: D64.9 - Anemia, unspecified Diagnosis: Secondary Status: Acute (5) Diabetes ICD Code: E11.9 - Type 2 diabetes mellitus without complications Diagnosis: Secondary Status: Chronic Brief History Patient is a 63-year-old gentleman, who presented to the emergency department by EMS after a fall from his seated walker while he was fishing. Patient states he landed on the left side was unable to get up since he had pain. His pain to the left hip area. Patient can usually ambulate with the help of the walker and his left lower extremity prostatic. Patient had a left below the knee amputation on a couple years ago he is diabetic has end-stage renal disease on hemodialysis. Dialyzes Tuesday and Tuesday had pain and was given morphine prior to presentation here in the emergency depart CBC/BMP: 02/05/18 0521 02/05/18 0521 Significant Findings Laboratory Tests Test 02/02/18 18:30 02/02/18 18:36 02/02/18 18:50 02/02/18 18:55 Lactic Acid Level 8.5 mmol/L (0.4-2.0) White Blood Count 11.2 TH/MM3 (4.0-11.0) Red Blood Count 3.31 MIL/MM3 (4.50-5.90) Hemoglobin 9.8 GM/DL (13.0-17.0) Hematocrit 31.6 % (39.0-51.0) Mean Corpuscular Hemoglobin Concent 31.1 % (32.0-36.0) Prothrombin Time 14.0 SEC (9.8-11.6) Blood Urea Nitrogen 37 MG/DL (7-18) Creatinine 7.73 MG/DL (0.60-1.30) Random Glucose 213 MG/DL (74-106) Aspartate Amino Transf (AST/SGOT) 43 U/L (15-37) Carbon Dioxide Level 18.7 MEQ/L (21.0-32.0) Anion Gap 20 MEQ/L (5-15) Estimat Glomerular Filtration Rate 7 ML/MIN (>89) Creatine Kinase MB 12.8 NG/ML (0.5-3.6) Troponin I 0.38 NG/ML (0.02-0.05) Blood Gas HCO3 19 mmol/L (22-26) Blood Gas Base Excess -6.4 mmol/L (-2-2) Arterial Blood pH 7.32 (7.380-7.420) Arterial Blood Partial Pressure CO2 37 mmHg (38-42) Arterial Blood Partial Pressure O2 289 mmHg (61-120) Blood Gas Hemoglobin 9.1 G/DL (12.0-16.0) Test 02/03/18 04:11 02/03/18 04:15 02/03/18 04:50 02/03/18 06:00 Total Creatine Kinase 345 U/L (39-308) 351 U/L (39-308) Creatine Kinase MB 14.7 NG/ML (0.5-3.6) Creatine Kinase MB % 4.3 % (0.0-4.0) Red Blood Count 2.95 MIL/MM3 (4.50-5.90) Hemoglobin 8.9 GM/DL (13.0-17.0) Hematocrit 27.5 % (39.0-51.0) Neutrophils (%) (Auto) 90.9 % (16.0-70.0) Lymphocytes (%) (Auto) 3.1 % (9.0-44.0) Neutrophils # (Auto) 8.4 TH/MM3 (1.8-7.7) Lymphocytes # (Auto) 0.3 TH/MM3 (1.0-4.8) Blood Urea Nitrogen 45 MG/DL (7-18) Creatinine 7.92 MG/DL (0.60-1.30) Random Glucose 234 MG/DL (74-106) Anion Gap 16 MEQ/L (5-15) Estimat Glomerular Filtration Rate 7 ML/MIN (>89) Troponin I 1.65 NG/ML (0.02-0.05) Activated Partial Thromboplast Time 31.5 SEC (24.3-30.1) Test 02/03/18 10:30 02/03/18 12:12 02/03/18 12:30 02/03/18 20:26 Urine Turbidity CLOUDY (CLEAR) Urine Protein 300 mg/dL (NEG-TRACE) Urine Glucose (UA) 1000 mg/dL (NEG) Urine Ketones 10 mg/dL (NEG) Urine Occult Blood MOD (NEG) Urine Leukocyte Esterase MOD (NEG) Urine WBC Clumps MANY (NONE) Urine Bacteria MANY /hpf (NONE) Red Blood Count 3.04 MIL/MM3 (4.50-5.90) Hemoglobin 9.1 GM/DL (13.0-17.0) Hematocrit 28.4 % (39.0-51.0) Blood Urea Nitrogen 47 MG/DL (7-18) Creatinine 8.50 MG/DL (0.60-1.30) Random Glucose 197 MG/DL (74-106) Phosphorus Level 7.9 MG/DL (2.5-4.9) Magnesium Level 2.6 MG/DL (1.5-2.5) Aspartate Amino Transf (AST/SGOT) 39 U/L (15-37) Estimat Glomerular Filtration Rate 6 ML/MIN (>89) Hemoglobin A1c 7.3 % (4.3-6.0) Total Creatine Kinase 340 U/L (39-308) Creatine Kinase MB 10.8 NG/ML (0.5-3.6) Troponin I 1.84 NG/ML (0.02-0.05) Test 02/04/18 03:04 02/04/18 04:36 02/04/18 08:21 02/04/18 18:28 Activated Partial Thromboplast Time 32.5 SEC (24.3-30.1) 40.4 SEC (24.3-30.1) Red Blood Count 2.88 MIL/MM3 (4.50-5.90) Hemoglobin 8.6 GM/DL (13.0-17.0) Hematocrit 26.5 % (39.0-51.0) Blood Urea Nitrogen 30 MG/DL (7-18) Creatinine 5.59 MG/DL (0.60-1.30) Random Glucose 158 MG/DL (74-106) Estimat Glomerular Filtration Rate 10 ML/MIN (>89) Test 02/05/18 00:45 02/05/18 05:21 Activated Partial Thromboplast Time 38.6 SEC (24.3-30.1) 36.5 SEC (24.3-30.1) Red Blood Count 2.77 MIL/MM3 (4.50-5.90) Hemoglobin 8.6 GM/DL (13.0-17.0) Hematocrit 25.8 % (39.0-51.0) Red Cell Distribution Width 17.6 % (11.6-17.2) Blood Urea Nitrogen 41 MG/DL (7-18) Creatinine 6.49 MG/DL (0.60-1.30) Random Glucose 192 MG/DL (74-106) Calcium Level 8.2 MG/DL (8.5-10.1) Estimat Glomerular Filtration Rate 9 ML/MIN (>89) Imaging CT Head CXR PE at Discharge . Transfer Summary Patient was made full DNR/comfort measures on 02/05/18. He was removed from artificial support devices and naturally at 1330 hours. His three daughters were at his bedside. Hospital Course 02/02: This is a 63yM with history of ESRD on IHD who presented 02/01 with left femoral neck fracture, admitted for work-up and possible operative fixation. He was found unresponsive in PEA arrest on the floor. ACLS ensued. ROSC was obtained. Dr. Pat met the patient upon arrival to the ICU. Patient is unresponsive and no additional information is available from the patient. ROS unobtainable. 02/03: Remains comatose, orally intubated on mechanical ventilation, not on any sedation. On nicardipine drip for hypertension. Suspect severe anoxic brain injury. Chest x-ray postintubation reveals right lower lobe infiltrate raising suspicion for aspiration. Awaiting EEG. 02/04: Remains unresponsive and ventilator dependent. No analgesia or sedation. Electrolytes acceptable. Arrangements being made to continue hemodialysis. 02/05: Dr. Pérez: Remains in coma, no sedation or analgesia. Remains ventilator dependent and respiratory failure. Continues to have episodes of apnea during spontaneous breathing trials.Three daughters have expressed to me their strong belief that he would not want to live like this. There are 4 children total. He has sustained a devastating neurological injury and is failing spontaneous breathing trials due to apnea spells. He will not recover enough significant function to lead a meaningful existence according to his children's description of what is important to him. They are all quite clear about his wishes. 02/05 Asked to evaluate patient in terms of assessment of end stage condition. He had PEA cardiac arrest. He has not been on continuous sedation but remains comatose with evidence of anoxic injury. EEG from 02/03 showed burst suppression. He is comatose, has been apneic during attempts at CPAP trial today. Pt Condition on Discharge: Deteriorating Pepito Pérez MD Feb 05, 2018 18:20
== END 2018-02-05 15:45 | disposition expired | DRG 535 ==
LOC: NEPD 18:48 → NEDA 21:16 → NEDH 02-02 01:30 → N06B 02-02 11:48 → N03A 02-02 18:28 → N03B 02-02 21:19 → N03A 02-03 01:27 → N03B 02-03 01:28
PROVIDERS: ADMIT Internal Medicine Critical Care Medicine; ATTEND Internal Medicine Critical Care Medicine
PROC: 0BH17EZ Insertion of Endotracheal Airway into Trachea, Via Natural or Artificial Opening (ICD-10-PCS; principal; 2018-02-02)
PROC: 5A12012 Performance of Cardiac Output, Single, Manual (ICD-10-PCS; 2018-02-02)
PROC: 5A1945Z Respiratory Ventilation, 24-96 Consecutive Hours (ICD-10-PCS; 2018-02-02)
PROC: 5A1D70Z Performance of Urinary Filtration, Intermittent, Less than 6 Hours Per Day (ICD-10-PCS; 2018-02-03)
DX: S72.002A Fracture of unspecified part of neck of left femur, initial encounter for closed fracture (principal); N18.6 End stage renal disease; I46.9 Cardiac arrest, cause unspecified; J96.01 Acute respiratory failure with hypoxia; J96.02 Acute respiratory failure with hypercapnia; I13.2 Hypertensive heart and chronic kidney disease with heart failure and with stage 5 chronic kidney disease, or end stage renal disease; G93.1 Anoxic brain damage, not elsewhere classified; E87.2 Acidosis; I50.9 Heart failure, unspecified; E11.22 Type 2 diabetes mellitus with diabetic chronic kidney disease; Z99.2 Dependence on renal dialysis; J44.9 Chronic obstructive pulmonary disease, unspecified; D63.8 Anemia in other chronic diseases classified elsewhere; Z66 Do not resuscitate; Z51.5 Encounter for palliative care; Z89.512 Acquired absence of left leg below knee; W07.XXXA Fall from chair, initial encounter; Y93.89 Activity, other specified; Y92.89 Other specified places as the place of occurrence of the external cause
CPT/HCPCS: 31500; 36600; 70450; 71045; 72170; 73552; 78582; 80048; 80053; 81001; 82140; 82550; 82552; 82805; 82948; 83036; 83605; 83735; 84100; 84439; 84443; 84484; 85025; 85027; 85384; 85610; 85730; 86403; 86850; 86900; 86901; 87040; 87070; 87077; 87086; 87147; 87186; 87205; 87641; 90935; 93005; 93306; 94002; 94003; 95819; 96374; A9540; A9567; J0360; J1165; J1170; J1644; J1815; J1980; J2060; J2270; J2405; J2543; J7050